=== PATIENT | male | born 1965 | race Caucasian/White ===

== ENCOUNTER 2017-09-06 08:48 | Day surgery (SDC) | payer BC, OTHER ==
[~2017-09-06 08:48] MED LIST: PROPOFOL 200 MG/20 ML VIAL As Ordered
[2017-09-06] MEDS: NS 1,000 ML IV (09:14)
== END 2017-09-06 11:02 | disposition home or self-care (01) ==
LOC: M SDC 08:48
DX: D12.2 Benign neoplasm of ascending colon (principal); Z86.010 Personal history of colon polyps
CPT/HCPCS: 45380

== ENCOUNTER → 2019-03-24 | Outpatient (REF) | payer OTHER | LOC: M LAB REF 17:10 | PROVIDERS: ATTEND Physician Assistant | DX: J02.9 Acute pharyngitis, unspecified (principal) ==

== ENCOUNTER → 2019-04-07 | Outpatient (CLI) | payer BC, OTHER ==
[~2019-04-07] MED LIST changes: +ISOVUE-370 76% 100ML VIAL (Q9967) As Ordered ONE; -PROPOFOL 200 MG/20 ML VIAL As Ordered
--- NOTE | 2019-04-07 17:37 | REP ---
Soft-tissue neck CT study with IV contrast: History: Localized swelling, mass and lump, and neck. No comparison neck imaging. CT contrast dose: 75 ml of intravenous Isovue [address] findings: There is a mucous retention cyst in the left sphenoid sinus measuring 14 mm in greatest diameter. The visualized paranasal sinuses are otherwise clear. No bony destructive lesion is appreciated. There are degenerative spondylosis changes at C5-6 and C6-7. There is a large mass involving the epiglottis and supraglottic larynx. This is predominately right-sided across the midline in the anterior pre-epiglottic space. The epiglottis is thickened. Aryepiglottic folds do not appear to be low involves and are normal. The arytenoid and cricoid cartilages are intact. No thyroid cartilage erosion or destruction is seen. Hyoid bone is unremarkable. The soft palate is unremarkable. There is some nodular irregularity in the floor the mouth posteriorly and to the left of midline suggesting involvement of the tongue base. Submandibular glands are normal and symmetric. Thyroid lobes are normal and symmetric. The lung apices are clear. The supraglottic mass lesion measures 3.2 by 2.5 cm in greatest transverse dimension. It is craniocaudal extent is difficult to define. Impression: Large, 3.2 cm, supraglottic and neoplastic mass involving the epiglottis and probably, the floor the mouth tongue base. Malignancy suspected. No adenopathy seen. Electronically Signed by Yobany Foley MD 04/07/2019 06:23 P
== END ==
LOC: M RAD 16:42
PROVIDERS: ATTEND Otolaryngology
DX: R22.1 Localized swelling, mass and lump, neck (principal); D38.0 Neoplasm of uncertain behavior of larynx
CPT/HCPCS: 70491; Q9967

== ENCOUNTER → 2019-04-20 | Outpatient (CLI) | payer BC, OTHER ==
[~2019-04-20] MED LIST changes: +ACET1TAB16 PO; +AERO1MIS2 XX; +BACI50OI TOP; +CIPR-249 PO; +COMPMIS43 XX; +IPRA0.00 NEB; -ISOVUE-370 76% 100ML VIAL (Q9967) As Ordered ONE; +OMEP-221 PO; +[UNRECOGNIZED DRUG - CODE] XX
--- NOTE | 2019-04-22 08:16 | ECGEPIP ---
Test Date: 2019-04-20 Pat Name: EMPERATRIZ DUMONT Department: Room: - Gender: Male Kitchenhand: YESENIA : 1965 Requested By: COLEMAN Bright Order Number: [id number] Reading MD: Joya Mcadams Measurements Intervals [place] Rate: 59 P: 25 CT: 146 QRS: 17 QRSD: 99 T: -4 QT: 378 QTc: 376 Interpretive Statements SINUS BRADYCARDIA POSSIBLE INFERIOR MYOCARDIAL INFARCTION, OF INDETERMINATE AGE NO PRIOR Electronically Signed on 04-22-2019 8:16:11 EDT by Joya Mcadams
== END ==
LOC: M EKG 15:54
PROVIDERS: ATTEND Anesthesiology
DX: Z01.818 Encounter for other preprocedural examination (principal); K21.9 Gastro-esophageal reflux disease without esophagitis; G47.30 Sleep apnea, unspecified; R00.1 Bradycardia, unspecified

== ENCOUNTER 2019-04-23 08:39 | Inpatient (IN) | payer BC, OTHER ==
[~2019-04-23] VITALS: Ht 182.9 cm; Wt 107.9 kg
[2019-04-23] VITALS (9 sets, daily range): BP systolic 119–131; BP diastolic 71–92; O2SAT 99
[~2019-04-23 08:39] MED LIST changes: -ACET1TAB16 PO; -AERO1MIS2 XX; -BACI50OI TOP; -CIPR-249 PO; -COMPMIS43 XX; -IPRA0.00 NEB; +LIDOCAINE 2% INJ 100 MG/5 ML SDV (FOR ANES.) As Ordered ONE; +MIDAZOLAM INJ 2 MG/2 ML VIAL (J2250) As Ordered ONE; +PROPOFOL 200 MG/20 ML VIAL As Ordered ONE; +ROCURONIUM BROMIDE 50 MG/5 ML VIAL As Ordered ONE; -[UNRECOGNIZED DRUG - CODE] XX; +fentaNYL 100 MCG/2 ML INJECTION (J3010) As Ordered ONE
[2019-04-23] MEDS ORDERED: CETACAINE SPRAY 5GM As Ordered ONE (09:53)
[2019-04-23] MEDS ORDERED: LIDOCAINE W/EPINEPHRINE 1% 20ML VIAL As Ordered ONE (10:37)
[2019-04-23] MEDS ORDERED: fentaNYL 100 MCG/2 ML INJECTION (J3010) As Ordered ONE (11:10)
[2019-04-23] MEDS ORDERED: EPINEPHrine 1MG/ML INJ 30ML MD-VIAL As Ordered ONE (11:14)
[2019-04-23] MEDS ORDERED: METHYLENE BLUE 0.5% (5MG/ML) 10 ML AMP (PROVAYBLUE)(Q9968 PER 1MG) As Ordered ONE (11:14)
[2019-04-23] MEDS ORDERED: MIDAZOLAM INJ 2 MG/2 ML VIAL (J2250) As Ordered ONE (12:18)
[2019-04-23] MEDS ORDERED: fentaNYL 250 MCG/5 ML INJECTION (J3010) As Ordered ONE (12:18)
[2019-04-23] MEDS ORDERED: PROPOFOL 1,000 MG/100 ML VIAL As Ordered ONE ×2 (12:21→14:36)
[2019-04-23] MEDS ORDERED: METOCLOPRAMIDE INJ 10MG/2ML VIAL (J2765) IV PRN (12:45)
[2019-04-23] MEDS ORDERED: ONDANSETRON 4MG/2ML VIAL (J2405) IV PRN (12:45)
[2019-04-23] MEDS ORDERED: LR 1,000 ML IV SCH (12:45)
[2019-04-23] MEDS ORDERED: MORPHINE 4 MG/ML 1ML VIAL/SYRINGE (J2270) IV PRN (13:00)
--- NOTE | 2019-04-23 13:20 | REP ---
Portable chest, 01:02 p.m., single AP view with the patient sitting: Comparison is 07/12/2008. There is a tracheostomy as an interval change. Lung ding are clear. Cardiac size is enlarged as an interval change. The billy, mediastinum, skeletal structures are unremarkable. Impression: Cardiomegaly. Tracheostomy. Lung ding are clear. Electronically Signed by Shad Mcdonald MD 04/23/2019 01:11 P
[2019-04-23] MEDS: fentaNYL 100 MCG/2 ML INJECTION (J3010) IV PRN ×5 (13:25→14:08)
[2019-04-23 13:39] LABS: BASO # 0.1 10^3/uL (0.0-0.2); BASO % 0.3 % (0.0-1.0); EOS # 0.1 10^3/uL (0.0-0.5); EOS % 0.5 % (0.0-3.0); HEMATOCRIT 44.7 % (42.0-52.0); HEMOGLOBIN 14.6 g/dl (13.5-17.5); LYMPH # 0.8 10^3/uL (1.5-5.0); LYMPH % 5.2 % (24.0-44.0); MEAN CORPUSCULAR HEMOGLOBIN 30.9 pg (27.0-33.0); MEAN CORPUSCULAR HGB CONC 32.7 g/dl (32.0-36.5); MEAN CORPUSCULAR VOLUME 94.5 fl (80.0-96.0); MONO # 1.1 10^3/uL (0.0-0.8); PLATELET COUNT, AUTOMATED 196 10^3/uL (150-450); RED BLOOD COUNT 4.73 10^6/uL (4.30-6.10); WHITE BLOOD COUNT 15.1 10^3/uL (4.0-10.0)
[2019-04-23] MEDS ORDERED: MIDAZOLAM INJ 2 MG/2 ML VIAL (J2250) IV PRN (13:45)
[2019-04-23 14:13] LABS: ALBUMIN 3.5 GM/DL (3.2-5.2); ALT/SGPT 45 U/L (12-78); BILIRUBIN,TOTAL 0.4 MG/DL (0.2-1.0); BLOOD UREA NITROGEN 12 MG/DL (7-18); CALCIUM LEVEL 8.7 MG/DL (8.5-10.1); CARBON DIOXIDE LEVEL 27 MEQ/L (21-32); CHLORIDE LEVEL 109 MEQ/L (98-107); CREATININE FOR GFR 1.04 MG/DL (0.70-1.30); GLOMERULAR FILTRATION RATE > 60.0 (>56); GLUCOSE, FASTING 99 MG/DL (70-100); POTASSIUM SERUM 4.5 MEQ/L (3.5-5.1); SODIUM LEVEL 141 MEQ/L (136-145); TOTAL PROTEIN 6.5 GM/DL (6.4-8.2)
--- NOTE | 2019-04-23 14:20 | HPEPDOC ---
General Date of Admission 04/23/19 Date of Service: Apr 23, 2019 Chief Complaint The patient is a 53-year-old male admitted with a reason for visit of Lesion Of Base Of Tongue. Source: RN/MD, Old records Exam Limitations: Other (sedated) Severity: Severe Associated Symptoms: Cough History of Present Illness 53 year old male with PMH of obesity, UZMA, hyperlipidemia, GERD came to the hospital today for a same day surgery for direct laryngoscopy and biopsy by Dr Abraham of a mass at the base of the tongue. During GA when the patient accounts clerk went in to intubate the patient there was large friable cauliflower like mass encroaching the base of the tongue, around the cords which started bleeding profusely and the oral cavity filled up with blood . Blood was suctioned and then the anesthesiologist tried to intubate but the tube could not be passed and again profuse bleeding occurred. An urgent tracheostomy was done by the surgeon Dr Abraham. He had about 200 cc blood loss. In the PACU as soon as he was waking up he started coughing severely and this caused profuse bleeding from one side of the tracheostomy. So the surgeon felt patient needed to be sedated and ventilated to give a little time for it to heal. Hospitalist was consulted for admission . Patient was admitted to ICU. Home Medications Scheduled Omeprazole (Omeprazole) 40 Mg Capsule., 40 MG PO DAILY, (Reported) Allergies Coded Allergies: No Known Allergies (Unverified , 09/03/17) Past Medical History Medical History UZMA, GERD, mass at the base of the tongue, hyperlipidemia, obesity Surgical History cholecystectomy, umbilical hernia repair Family History Patient sedated so family history could not be obtained. Social History * Smoker: former Smoker Alcohol: other (daily < 3 drinks/ day) Drugs: other (unknown) A-FIB/CHADSVASC A-FIB History Current/History of A-Fib/PAF?: No Review of Systems Other systems denies any pain at [facility] surgical site, coughing, hemoptysis through the new trach, no abdominal pain, nausea or vomiting. Physical Examination General Exam: Positive: No Acute Distress, Other (lightly sedated able to follow commands and answer some questions. ) Eye Exam: Positive: PERRLA, Conjunctiva & lids normal; Negative: Sclera icteric ENT Exam: Positive: Mucous membr. moist/pink, Tongue Midline, Other ENT (new tracheostomy) Neck Exam: Positive: Supple; Negative: JVD, thyromegaly Chest Exam: Positive: Clear to auscultation, Normal air movement Heart Exam: Positive: Rate Normal, Regular Rhythm, Normal S1, Normal S2; Negative: Murmurs, Rubs Telemetry: Positive: No significant arrhythmia Abdomen Exam: Positive: Normal bowel sounds, Soft; Negative: Tenderness, Hepatospenomegaly Extremity Exam: Positive: Normal pulses; Negative: Clubbing, Cyanosis, Edema Skin Exam: Positive: Nl turgor and temperature; Negative: Breakdown, Lesion Vital Signs Vital Signs Date Time Temp Pulse Resp B/P (MAP) Pulse Ox O2 Delivery O2 Flow Rate FiO2 04/23/19 09:03 96.7 68 17 134/82 (99) 98 Assessment/Plan 53 year old male with PMH of obesity, UZMA, hyperlipidemia, GERD came to the hospital today for a same day surgery for direct laryngoscopy and biopsy by Dr Abraham of a mass at the base of the tongue. During GA when the patient accounts clerk went in to intubate the patient there was large friable cauliflower like mass encroaching the base of the tongue, around the cords which started bleeding profusely and the oral cavity filled up with blood . Blood was suctioned and then the anesthesiologist tried to intubate but the tube could not be passed and again profuse bleeding occurred. An urgent tracheostomy was done by the surgeon Dr Abraham. He had about 200 cc blood loss. In the PACU as soon as he was waking up he started coughing severely and this caused profuse bleeding from one side of the tracheostomy. So the surgeon felt patient needed to be sedated and ventilated to give a little time for it to heal. Hospitalist was consulted for admission . Patient was admitted to ICU. S/P urgent Tracheostomy with bleeding in PACU. Bleeding from mass at trish base of the tongue during intubation requiring urgent tracheostomy. Tracheostomy management as per Dr Abraham continue propofol sedation Vent setting as per pulmonology. NPO, IVF. Malignant at the base of the tongue with obstruction s/p tracheostomy pain control with morphine prn Biopsy sent definitive management to be determined after biopsy results. UZMA now has tracheostomy GI prophylaxis with pantoprazole DVT prophylaxis mechanical. Plan / VTE VTE Prophylaxis Ordered?: Yes LEONORA TOMLINSON MD Apr 23, 2019 13:31
[2019-04-23] MEDS: LR 1,000 ML IV SCH (14:51)
[2019-04-23] MEDS: PROPOFOL 1,000 MG in IV 1 EA IV SCH ×4 (14:51→22:31)
--- NOTE | 2019-04-23 14:54 | CR ---
DATE OF CONSULTATION: 04/23/2019 I was asked by Dr. Sary Ortiz to evaluate Mr. Denise for mechanical ventilation recommendations. HISTORY OF PRESENT ILLNESS: Mr. Denise is a 53-year-old male who had a lesion at the base of the tongue. He was to have a biopsy of that lesion done today. Apparently, when the BACTERIOLOGIST FISHERY went to intubate him, there was a large region that was friable and they ended up suctioning 80-[address] Fernández then took the GlideScope and he could see the cords, but even before the tube was handed to him to place in, the lesion bled again. He therefore underwent an emergency tracheotomy. Biopsies were taken of what was verbally described to me as a large mass above the cords. He then went to the recovery room. He was coughing and also had heme. Dr. Abraham wanted him sedated with propofol to allow the trache time to heal. For his safety, we cannot have an individual on propofol that does not have a guaranteed backup ventilation. Mr. Denise was on propofol, but sedated to perhaps a [place] 2. He wakes up easily. He nods his head and indicates he is getting enough air and that his pain is controlled. He is actually trying to right notes in communication. While I was there in the PACU, he was placed on a ventilator on pressure support. He did have significant coughing associated with this maneuver, but once he became accustomed to it, he was resting comfortably on the ventilator. ALLERGIES: No known drug allergies. MEDICATIONS ON ADMISSION: - omeprazole 40 mg p.o. daily PAST MEDICAL HISTORY: 1. Gastroesophageal reflux disease (GERD). 2. Obstructive sleep apnea, using mouth device (question dental appliance) 3. Status post umbilical hernia repair with placement of mesh. 4. Status post cholecystectomy in 2014. 5. History of tobacco usage, quit 2013. SOCIAL HISTORY: Mr. Denise is . I do not know his pack-year history, but he quit in 2013. On his intake sheet it stated he had three alcoholic beverages per day. No illicit drug usage. FAMILY HISTORY: There is a family history of bone cancer in his mother. REVIEW OF SYSTEMS: What is known is contained in the HPI. Review of systems otherwise obtainable secondary to new tracheostomy and sedation. OBJECTIVE/PHYSICAL EXAMINATION Mr. Denise is lying in bed and appears comfortable. He is sedated, but rouses to voice and responds appropriately. When I initially saw him he was on trache dome and later this was converted to pressure support. VITAL SIGNS: Temperature 97.9, pulse 69, respiratory rate 14, blood pressure 122/76, MAP 91, SPO2 100% on FIO2 of 0.50. HEENT: Anicteric, PERRL. Nares: Patent bilaterally. Moist mucosa. Oropharynx clear. No obvious lesions. Good dentition. NECK: Not examined secondary to fresh trache. There is a fresh trache that has some blood in the orifices as well as around the tracheostomy site. CHEST: Normal shape. LUNGS: Symmetric excursion, good air entry, no wheeze, rhonchi or crackle on tidaled excursion. Normal I:E. No accessory muscle usage or retractions. CARDIOVASCULAR: Regular rate and rhythm with a normal S1-S2, no murmur, rub or gallop appreciated. ABDOMEN: Positive bowel sounds, soft, nondistended, he does not appear to indicate tenderness, no hepatosplenomegaly or masses appreciated. EXTREMITIES: Warm and well-perfused. Without clubbing, cyanosis or edema. Palpable pedal pulses bilaterally. LABORATORY DATA: There are no current labs. I reviewed his chest x-ray as well as report that was taken in the PACU. That x-ray showed normal to borderline enlarged cardiac silhouette. Normal-appearing mediastinal and hilar regions. No acute infiltrates. The tracheostomy is in good position. IMPRESSION: 1. Mechanical ventilation. Needed secondary to need to sedate new fresh trache in a patient with significant cough which requires propofol. This is for safety reasons that he requires a ventilator. 2. Status post emergent tracheostomy. 3. Base of tongue mass, biopsy pending. 4. UZMA as outpatient, tracheostomy eliminates that disease process. 5. GERD. 6. Alcohol, reported three beverages per day. 7. History of tobacco usage. RECOMMENDATIONS: 1. Will continue him on pressure support of 5/5 as long as he is requiring propofol for sedation. 2. Will use propofol to [place] level 2-3. 3. Anticipate that once he no longer requires sedation he will easily tolerate dome as he was doing that in the PACU today. 4. Given three to four alcoholic beverages, today would place him on CIWA protocol, will defer that to the hospitalist service. 5. As noted above, his UZMA is no longer a problem given tracheostomy which could overcome the obstruction.
[2019-04-23] MEDS: CHLORHEXIDINE GLUCONATE 0.12 % 15ML UDC (PERIDEX ORAL RINSE) MT SCH (20:48)
[2019-04-23] MEDS: MORPHINE 4 MG/ML 1ML VIAL/SYRINGE (J2270) IV PRN (20:49)
[2019-04-23] MEDS ORDERED: CHLORHEXIDINE GLUCONATE 0.12 % 15ML UDC (PERIDEX ORAL RINSE) MT SCH (21:00)
--- NOTE | 2019-04-23 21:42 | RO ---
DATE OF PROCEDURE: 04/23/2019 PREPROCEDURE DIAGNOSIS: Supraglottic tumor. POSTPROCEDURE DIAGNOSIS: Base of the tongue cancer. PROCEDURE: Tracheotomy under local anesthesia and direct laryngoscopy and biopsy. SURGEON: Gentry Abraham MD [employer] SPECIALIST: Dr. Claudio ANESTHESIA: DESCRIPTION OF PROCEDURE: Under general anesthesia, there was an attempt made at intubation, which was unsuccessful. The patient developed some bleeding from the tumor. Following that, then the patient was woken up and then under local anesthesia, I did a tracheotomy. I infiltrated the area with lidocaine and epinephrine. I divided skin and subcutaneous tissues. I divided the strap muscles in the midline. I went down to the trachea. I identified the hyoid. There was thyroid over the trachea. I mobilized the isthmus and divided with clamps and ties. Once this was done, then I inserted a hook into the cricoid and elevated the larynx. I made an incision between the second-third ring. I then opened up the airway. I inserted a #8 Shiley tube. There was some bleeding along the way, which was controlled with cautery or ties of #3-0 silk. The patient tolerated the procedure well. Less than 10 mL estimated blood loss. Once this was done, then the trach tube was sutured into place. I then put on some ties, and then we turned the bed. I used Aquaplast to protect the teeth. I inserted the laryngoscope, examined the oropharynx, hypopharynx. I was unable to get a good look at the cords because there was a large tumor at the base of the tongue down to the epiglottis. I could not get underneath the epiglottis to elevate out of the way. The tumor extended to the left of midline from the right side. The tumor was fungating and bled easily. Several biopsies were performed. Tumor was probably 3-4 cm in diameter. The piriform fossa on both sides was clear. Postcricoid area was clear. IMPRESSION: Patient has base of tongue carcinoma right side, and because of airway issue, a tracheostomy was performed. Patient tolerated the procedure well and was transferred to the recovery room in excellent condition. Patient will be admitted to the intensive care unit (ICU) afterwards. Dr. Claudio held retractors and suctioned during the procedure of the tracheotomy.
[2019-04-24] VITALS (16 sets, daily range): BP systolic 91–147; BP diastolic 55–84; O2SAT 96–99
[2019-04-24] MEDS: LR 1,000 ML IV SCH (01:40)
[2019-04-24] MEDS: PROPOFOL 1,000 MG in IV 1 EA IV SCH ×5 (01:41→08:34)
[2019-04-24] MEDS: MORPHINE 4 MG/ML 1ML VIAL/SYRINGE (J2270) IV PRN (02:27)
[2019-04-24 05:02] LABS: BASO % 0.3 % (0.0-1.0); EOS # 0.1 10^3/uL (0.0-0.5); EOS % 0.5 % (0.0-3.0); HEMATOCRIT 41.3 % (42.0-52.0); HEMOGLOBIN 13.6 g/dl (13.5-17.5); LYMPH # 1.4 10^3/uL (1.5-5.0); MEAN CORPUSCULAR HEMOGLOBIN 30.8 pg (27.0-33.0); MEAN CORPUSCULAR HGB CONC 32.9 g/dl (32.0-36.5); MEAN CORPUSCULAR VOLUME 93.7 fl (80.0-96.0); MONO # 1.7 10^3/uL (0.0-0.8); MONO % 11.1 % (0.0-5.0); NEUTROPHILS # 11.9 10^3/uL (1.5-8.5); NEUTROPHILS % 78.5 % (36.0-66.0); PLATELET COUNT, AUTOMATED 182 10^3/uL (150-450); RED BLOOD COUNT 4.41 10^6/uL (4.30-6.10); WHITE BLOOD COUNT 15.1 10^3/uL (4.0-10.0)
[2019-04-24 05:32] LABS: BLOOD UREA NITROGEN 11 MG/DL (7-18); CALCIUM LEVEL 8.2 MG/DL (8.5-10.1); CARBON DIOXIDE LEVEL 30 MEQ/L (21-32); CHLORIDE LEVEL 107 MEQ/L (98-107); CREATININE FOR GFR 0.98 MG/DL (0.70-1.30); GLOMERULAR FILTRATION RATE > 60.0 (>56); GLUCOSE, FASTING 104 MG/DL (70-100); POTASSIUM SERUM 3.9 MEQ/L (3.5-5.1); SODIUM LEVEL 143 MEQ/L (136-145)
[2019-04-24] MEDS: CHLORHEXIDINE GLUCONATE 0.12 % 15ML UDC (PERIDEX ORAL RINSE) MT SCH ×2 (09:24→21:00)
[2019-04-24] MEDS: PANTOPRAZOLE 40MG INJ (PROTONIX) (C9113) IV SCH (09:24)
--- NOTE | 2019-04-24 09:38 | IPN ---
DATE: 04/24/2019 I attended Kole Denise here in the intensive care unit (ICU). The patient was examined and the chart was reviewed. Sedation was lightened. He is on a PEEP and pressure support only. He is quite comfortable. He has just been informed by Dr. Abraham the results of his pathology. His pain he describes as a 2 to 3 out of 10, but currently is tolerable. No new blood gas this morning. No new films. White blood cell count 15.1. Electrolytes fairly unremarkable and are reviewed and in the EMR. PHYSICAL EXAMINATION: Membranes are moist. Trachea is midline. His trach site has only mild dried blood but is otherwise benign in appearance. Pupils react. Sclerae clear. Chest clear to auscultation and percussion. No focal adventitious sounds identified. Cardiac is regular. No murmur, rub or gallop. Peripheral pulses palpable. No edema. Abdomen is obese, soft and nontender with active bowel sounds. No convincing organomegaly or mass. Extremities are without cyanosis or clubbing. Neurologically, he is awake, alert and appropriate. Psychiatric shows normal mood and affect. Maximum temperature (t-max) overnight 100.1, blood pressure 91 to 115 systolic. Heart rate 80 to 100s with a sinus mechanism. Pulse oximetry between 95 and 99% on 40% FiO2. IMPRESSION: 1. Status post tracheostomy for upper airway obstruction. 2. Subsegmental atelectasis, improved. 3. History of obstructive sleep apnea, now status post tracheostomy. RECOMMENDATIONS: At this point, we will put him on an aerosol trach collar. My suspicion is that the patient will be able to have his balloon down and work on speaking later in the day. Nutrition and oral intake will be per ENT. At this point, we will proceed as outlined above. Further recommendations will be made in the progress record as new information becomes available.
[2019-04-24 10:10] LABS: ABG BASE EXCESS 2.9 (-2.0-2.0); ABG HCO3 24.4 MEQ/L (22.0-26.0); ABG O2 SATURATION 99.3 % (95.0-99.0); ABG PARTIAL PRESSURE CO2 28.8 mmHg (35.0-45.0); ABG PARTIAL PRESSURE O2 144.5 mmHg (75.0-100.0); ABG STANDARD HCO3 27.1 MEQ/L (22.0-26.0); ABG TOTAL CO2 25.2 MEQ/L (22.0-29.0); ABG pH (ARTERIAL) 7.545 UNITS (7.350-7.450)
[2019-04-24] MEDS: IPRATROPIUM 0.5MG/ALBUTEROL 2.5MG INH SOL UD 3ML (DUONEB)(J7620) NEB SCH ×3 (11:29→20:04)
[2019-04-24] MEDS ORDERED: LORazepam 2 MG/ML VIAL (J2060) IV PRN (11:45)
--- NOTE | 2019-04-24 14:32 | IPNPDOC ---
Subjective Date Seen The patient was seen on 04/24/19. Subjective Chief Complaint/HPI Patient up and awake this morning weaned off the profofol and off vent. He is on a trach collar. Diet advanced to clear liquids. Anxious about the new diagnosis of cancer and new tracheotomy in ability to talk. Objective Physical Examination General Exam: Positive: Alert, Cooperative, No Acute Distress Eye Exam: Positive: PERRLA, Conjunctiva & lids normal; Negative: Sclera icteric ENT Exam: Positive: Mucous membr. moist/pink, Tongue Midline, Other ENT (new tracheostomy) Neck Exam: Positive: Supple; Negative: JVD, thyromegaly Chest Exam: Positive: Clear to auscultation, Normal air movement Heart Exam: Positive: Rate Normal, Regular Rhythm, Normal S1, Normal S2; Negative: Murmurs, Rubs Telemetry: Positive: No significant arrhythmia Abdomen Exam: Positive: Normal bowel sounds, Soft; Negative: Tenderness, Hepatospenomegaly Male Exam: Positive: Normal Genital Exam Extremity Exam: Positive: Normal pulses; Negative: Clubbing, Cyanosis, Edema Skin Exam: Positive: Nl turgor and temperature; Negative: Breakdown, Lesion Neuro Exam: Positive: Normal Gait, Normal Speech, Cranial Nerves 3-12 NL, Reflexes 2+ Psych Exam: Positive: Mental status NL, Mood NL, Oriented x 3 Assessment /Plan Assessment 53 year old male with PMH of obesity, UZMA, hyperlipidemia, GERD came to the hospital today for a same day surgery for direct laryngoscopy and biopsy by Dr Abraham of a mass at the base of the tongue. During GA when the health unit coordinator went in to intubate the patient there was large friable cauliflower like mass encroaching the base of the tongue, around the cords which started bleeding profusely and the oral cavity filled up with blood . Blood was suctioned and then the anesthesiologist tried to intubate but the tube could not be passed and again profuse bleeding occurred. An urgent tracheostomy was done by the surgeon Dr Abraham. He had about 200 cc blood loss. In the PACU as soon as he was waking up he started coughing severely and this caused profuse bleeding from one side of the tracheostomy. So the surgeon felt patient needed to be sedated and ventilated to give a little time for it to heal. Hospitalist was consulted for admission . Patient was admitted to ICU. S/P urgent Tracheostomy due to bleeding from mass at the base of the tongue during intubation. mass at the base of the tongue encroaching around the vocal cords with bleeding in PACU. tracheostomy management as per Dr Abraham diet advanced to clear liquids. Then advance as tolerated. 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 pain control with morphine prn UZMA now has tracheostomy GI prophylaxis with pantoprazole Significant daily alcohol use will put on CIWA protocol and ativan prn. DVT prophylaxis mechanical. Plan/VTE VTE Prophylaxis Ordered?: Yes VS, I&O, 24H, [facility] Vital Signs/I&O Vital Signs Date Time Temp Pulse Resp B/P (MAP) Pulse Ox O2 Delivery O2 Flow Rate FiO2 04/24/19 12:00 98.0 96 22 126/72 (90) 96 35 04/24/19 06:01 Ventilator I&O- Last 24 Hours up to 6 AM 04/24/19 06:00 Intake Total 2531 ml Output Total 2575 ml Balance -44 ml Laboratory Data 24H LABS Laboratory Tests 2 04/24/19 04:44: Immature Granulocyte % (Auto) 0.6, White Blood Count 15.1H, Red Blood Count 4.41, Hemoglobin 13.6, Hematocrit 41.3L, Mean Corpuscular Volume 93.7, Mean Corpuscular Hemoglobin 30.8, Mean Corpuscular Hemoglobin Concent 32.9, Red Cell Distribution Width 13.7, Platelet Count 182, Neutrophils (%) (Auto) 78.5H, Lymphocytes (%) (Auto) 9.0L, Monocytes (%) (Auto) 11.1H, Eosinophils (%) (Auto) 0.5, Basophils (%) (Auto) 0.3, Neutrophils # (Auto) 11.9H, Lymphocytes # (Auto) 1.4L, Monocytes # (Auto) 1.7H, Eosinophils # (Auto) 0.1, Basophils # (Auto) 0.0, Nucleated Red Blood Cells % (auto) 0.0, Anion Gap 6L, Glomerular Filtration Rate > 60.0, Blood Urea Nitrogen 11, Creatinine 0.98, Sodium Level 143, Potassium Level 3.9, Chloride Level 107, Carbon Dioxide Level 30, Calcium Level 8.2L 04/24/19 09:57: Blood Gas Bicarbonate Standard 27.1H, Arterial Blood pH 7.545H, Arterial Blood Partial Pressure CO2 28.8L, Arterial Blood Partial Pressure O2 144.5H, Arterial Blood Total CO2 25.2, Arterial Blood HCO3 24.4, Arterial Blood Base Excess 2.9H, Arterial Blood Oxygen Saturation 99.3H CBC/BMP Laboratory Tests 04/24/19 04:44 Red Blood Count 4.41, Mean Corpuscular Volume 93.7, Mean Corpuscular Hemoglobin 30.8, Mean Corpuscular Hemoglobin Concent 32.9, Red Cell Distribution Width 13.7, Neutrophils (%) (Auto) 78.5 H, Lymphocytes (%) (Auto) 9.0 L, Monocytes (%) (Auto) 11.1 H, Eosinophils (%) (Auto) 0.5, Basophils (%) (Auto) 0.3, Neutrophils # (Auto) 11.9 H, Lymphocytes # (Auto) 1.4 L, Monocytes # (Auto) 1.7 H, Eosinophils # (Auto) 0.1, Basophils # (Auto) 0.0, Calcium Level 8.2 L LEONORA TOMLINSON MD Apr 24, 2019 14:31
[2019-04-25] VITALS: BP 119/68
[2019-04-25 03:26] VITALS: O2SAT 100
[2019-04-25] MEDS: IPRATROPIUM 0.5MG/ALBUTEROL 2.5MG INH SOL UD 3ML (DUONEB)(J7620) NEB SCH ×7 (03:26→22:51)
[2019-04-25 04:00] VITALS: BP 133/75
[2019-04-25] MEDS: MORPHINE 4 MG/ML 1ML VIAL/SYRINGE (J2270) IV PRN (04:36)
[2019-04-25 05:09] LABS: BASO # 0.1 10^3/uL (0.0-0.2); BASO % 0.3 % (0.0-1.0); EOS % 0.2 % (0.0-3.0); HEMATOCRIT 41.7 % (42.0-52.0); HEMOGLOBIN 13.5 g/dl (13.5-17.5); LYMPH # 1.1 10^3/uL (1.5-5.0); LYMPH % 6.2 % (24.0-44.0); MEAN CORPUSCULAR HEMOGLOBIN 30.1 pg (27.0-33.0); MEAN CORPUSCULAR HGB CONC 32.4 g/dl (32.0-36.5); MEAN CORPUSCULAR VOLUME 93.1 fl (80.0-96.0); MONO # 1.9 10^3/uL (0.0-0.8); MONO % 10.6 % (0.0-5.0); NEUTROPHILS # 14.5 10^3/uL (1.5-8.5); NEUTROPHILS % 82.1 % (36.0-66.0); PLATELET COUNT, AUTOMATED 184 10^3/uL (150-450); RED BLOOD COUNT 4.48 10^6/uL (4.30-6.10); WHITE BLOOD COUNT 17.6 10^3/uL (4.0-10.0)
[2019-04-25 05:30] LABS: BLOOD UREA NITROGEN 11 MG/DL (7-18); CALCIUM LEVEL 8.2 MG/DL (8.5-10.1); CARBON DIOXIDE LEVEL 28 MEQ/L (21-32); CHLORIDE LEVEL 108 MEQ/L (98-107); CREATININE FOR GFR 0.93 MG/DL (0.70-1.30); GLOMERULAR FILTRATION RATE > 60.0 (>56); GLUCOSE, FASTING 128 MG/DL (70-100); POTASSIUM SERUM 3.6 MEQ/L (3.5-5.1); SODIUM LEVEL 142 MEQ/L (136-145)
[2019-04-25 08:00] VITALS: BP 135/76
[2019-04-25] MEDS ORDERED: KETOROLAC 30 MG/ML VIAL (J1885) IV ONE ×2 (08:30→23:00)
[2019-04-25] MEDS ORDERED: SODIUM CHLORIDE 0.9% 1000ML IV ONE (08:45)
[2019-04-25] MEDS: PANTOPRAZOLE 40MG INJ (PROTONIX) (C9113) IV SCH (09:12)
[2019-04-25] MEDS: CHLORHEXIDINE GLUCONATE 0.12 % 15ML UDC (PERIDEX ORAL RINSE) MT SCH ×2 (09:12→23:37)
[2019-04-25 15:25] VITALS: BP 121/84
[2019-04-25 20:00] VITALS: BP 122/84
[2019-04-25] MEDS: PIPERACILLIN/TAZOBACTAM SOD 3.375 GM in D5W MINI-BAG PLUS 50 ML IV SCH (23:13)
[2019-04-26] MEDS: IPRATROPIUM 0.5MG/ALBUTEROL 2.5MG INH SOL UD 3ML (DUONEB)(J7620) NEB SCH ×6 (03:44→23:29)
[2019-04-26] MEDS: PIPERACILLIN/TAZOBACTAM SOD 3.375 GM in D5W MINI-BAG PLUS 50 ML IV SCH ×4 (04:21→22:45)
[2019-04-26 06:00] VITALS: BP 125/81
[2019-04-26 06:23] LABS: BASO % 0.3 % (0.0-1.0); EOS # 0.1 10^3/uL (0.0-0.5); HEMATOCRIT 42.1 % (42.0-52.0); HEMOGLOBIN 13.5 g/dl (13.5-17.5); LYMPH % 6.7 % (24.0-44.0); MEAN CORPUSCULAR HEMOGLOBIN 30.4 pg (27.0-33.0); MEAN CORPUSCULAR HGB CONC 32.1 g/dl (32.0-36.5); MEAN CORPUSCULAR VOLUME 94.8 fl (80.0-96.0); MONO # 1.6 10^3/uL (0.0-0.8); MONO % 11.5 % (0.0-5.0); NEUTROPHILS # 11.3 10^3/uL (1.5-8.5); NEUTROPHILS % 79.8 % (36.0-66.0); PLATELET COUNT, AUTOMATED 185 10^3/uL (150-450); RED BLOOD COUNT 4.44 10^6/uL (4.30-6.10); WHITE BLOOD COUNT 14.1 10^3/uL (4.0-10.0)
[2019-04-26 06:53] LABS: BLOOD UREA NITROGEN 19 MG/DL (7-18); CALCIUM LEVEL 8.9 MG/DL (8.5-10.1); CARBON DIOXIDE LEVEL 29 MEQ/L (21-32); CHLORIDE LEVEL 108 MEQ/L (98-107); CREATININE FOR GFR 0.99 MG/DL (0.70-1.30); GLOMERULAR FILTRATION RATE > 60.0 (>56); GLUCOSE, FASTING 116 MG/DL (70-100); POTASSIUM SERUM 3.6 MEQ/L (3.5-5.1); SODIUM LEVEL 141 MEQ/L (136-145)
[2019-04-26] MEDS ORDERED: KETOROLAC 30 MG/ML VIAL (J1885) IV PRN (07:45)
[2019-04-26] MEDS: NS 1,000 ML IV SCH ×2 (08:03→21:52)
[2019-04-26 08:30] VITALS: O2SAT 100
[2019-04-26] MEDS: CHLORHEXIDINE GLUCONATE 0.12 % 15ML UDC (PERIDEX ORAL RINSE) MT SCH ×2 (09:00→21:52)
[2019-04-26] MEDS: PANTOPRAZOLE 40MG INJ (PROTONIX) (C9113) IV SCH (10:12)
[2019-04-26 14:00] VITALS: BP 128/84
[2019-04-26 22:00] VITALS: BP 141/81
--- NOTE | 2019-04-26 22:08 | IPNPDOC ---
Subjective Date Seen The patient was seen on 04/25/19. Subjective Chief Complaint/HPI low grade fever on post op day 1 , no fevers today. countinues to have bouts of coughing, no hemoptysis. remains on trach coller. Objective Physical Examination General Exam: Positive: Alert, Cooperative, No Acute Distress Eye Exam: Positive: PERRLA, Conjunctiva & lids normal; Negative: Sclera icteric ENT Exam: Positive: Mucous membr. moist/pink, Tongue Midline, Other ENT (new tracheostomy) Neck Exam: Positive: Supple; Negative: JVD, thyromegaly Chest Exam: Positive: Clear to auscultation, Normal air movement Heart Exam: Positive: Rate Normal, Regular Rhythm, Normal S1, Normal S2; Negative: Murmurs, Rubs Telemetry: Positive: No significant arrhythmia Abdomen Exam: Positive: Normal bowel sounds, Soft; Negative: Tenderness, Hepatospenomegaly Male Exam: Positive: Normal Genital Exam Extremity Exam: Positive: Normal pulses; Negative: Clubbing, Cyanosis, Edema Skin Exam: Positive: Nl turgor and temperature; Negative: Breakdown, Lesion Neuro Exam: Positive: Normal Gait, Normal Speech, Cranial Nerves 3-12 NL, Reflexes 2+ Psych Exam: Positive: Mental status NL, Mood NL, Oriented x 3 Assessment /Plan Assessment 53 year old male with PMH of obesity, UZMA, hyperlipidemia, GERD came to the hospital today for a same day surgery for direct laryngoscopy and biopsy by Dr Abraham of a mass at the base of the tongue. During GA when the certified coatings inspector went in to intubate the patient there was large friable cauliflower like mass encroaching the base of the tongue, around the cords which started bleeding profusely and the oral cavity filled up with blood . Blood was suctioned and the n the anesthesiologist tried to intubate but the tube could not be passed and again profuse bleeding occurred. An urgent tracheostomy was done by the surgeon Dr Abraham. He had about 200 cc blood loss. In the PACU as soon as he was waking up he started coughing severely and this caused profuse bleeding from one side of the tracheostomy. So the surgeon felt patient needed to be sedated and ventilated to give a little time for it to heal. Hospitalist was consulted for admission . Patient was admitted to ICU. S/P urgent Tracheostomy due to bleeding during intubation from obstructive mass at the base of the tongue encroaching around the vocal cords. Had significant bleeding with coughing in PACU so was decided to sedate him with propofol with back up ventillation and admit him to ICU.. bleeding has now resolved, Patient on trach coller. tacheostomy management as per Dr Abraham Then advance diet as tolerated. large amounts of foul smelling phlegm from the tracheotomy started on zosyn. 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 pain control with morphine prn UZMA now has tracheostomy GI prophylaxis with pantoprazole Significant daily alcohol use will put on CIWA protocol and ativan prn. DVT prophylaxis mechanical. Plan/VTE VTE Prophylaxis Ordered?: Yes VS, I&O, 24H, Luisbonharjinder Vital Signs/I&O Vital Signs Date Time Temp Pulse Resp B/P (MAP) Pulse Ox O2 Delivery O2 Flow Rate FiO2 04/25/19 04:46 18 04/25/19 04:00 98.0 99 133/75 (94) 97 28 04/25/19 03:26 Trach Collar 5.0 I&O- Last 24 Hours up to 6 AM 04/25/19 06:00 Intake Total 210 ml Output Total 980 ml Balance -770 ml Laboratory Data 24H LABS Laboratory Tests 2 04/24/19 09:57: Blood Gas Bicarbonate Standard 27.1H, Arterial Blood pH 7.545H, Arterial Blood Partial Pressure CO2 28.8L, Arterial Blood Partial Pressure O2 144.5H, Arterial Blood Total CO2 25.2, Arterial Blood HCO3 24.4, Arterial Blood Base Excess 2.9H, Arterial Blood Oxygen Saturation 99.3H 04/25/19 04:57: Immature Granulocyte % (Auto) 0.6, White Blood Count 17.6H, Red Blood Count 4.48, Hemoglobin 13.5, Hematocrit 41.7L, Mean Corpuscular Volume 93.1, Mean Corpuscular Hemoglobin 30.1, Mean Corpuscular Hemoglobin Concent 32.4, Red Cell Distribution Width 13.9, Platelet Count 184, Neutrophils (%) (Auto) 82.1H, Lymphocytes (%) (Auto) 6.2L, Monocytes (%) (Auto) 10.6H, Eosinophils (%) (Auto) 0.2, Basophils (%) (Auto) 0.3, Neutrophils # (Auto) 14.5H, Lymphocytes # (Auto) 1.1L, Monocytes # (Auto) 1.9H, Eosinophils # (Auto) 0.0, Basophils # (Auto) 0.1, Nucleated Red Blood Cells % (auto) 0.0, Anion Gap 6L, Glomerular Filtration Rate > 60.0, Blood Urea Nitrogen 11, Creatinine 0.93, Sodium Level 142, Potassium Level 3.6, Chloride Level 108H, Carbon Dioxide Level 28, Calcium Level 8.2L CBC/BMP Laboratory Tests 04/25/19 04:57 Red Blood Count 4.48, Mean Corpuscular Volume 93.1, Mean Corpuscular Hemoglobin 30.1, Mean Corpuscular Hemoglobin Concent 32.4, Red Cell Distribution Width 13.9, Neutrophils (%) (Auto) 82.1 H, Lymphocytes (%) (Auto) 6.2 L, Monocytes (%) (Auto) 10.6 H, Eosinophils (%) (Auto) 0.2, Basophils (%) (Auto) 0.3, Neutrophils # (Auto) 14.5 H, Lymphocytes # (Auto) 1.1 L, Monocytes # (Auto) 1.9 H, Eosinophils # (Auto) 0.0, Basophils # (Auto) 0.1, Calcium Level 8.2 L Microbiology Microbiology 04/25/19 Gram Stain - Final, Resulted 04/25/19 Sputum Culture, Resulted Pending LEONORA TOMLINSON MD Apr 25, 2019 06:29
--- NOTE | 2019-04-26 22:46 | IPNPDOC ---
Subjective Date Seen The patient was seen on 04/26/19. Subjective Chief Complaint/HPI feeling much better, did his own tracheostomy care. decreased phlegm and cough this morning. No fever or chills, pain controlled. Objective Physical Examination General Exam: Positive: Alert, Cooperative, No Acute Distress Eye Exam: Positive: PERRLA, Conjunctiva & lids normal; Negative: Sclera icteric ENT Exam: Positive: Mucous membr. moist/pink, Tongue Midline, Other ENT (new tracheostomy) Neck Exam: Positive: Supple; Negative: JVD, thyromegaly Chest Exam: Positive: Clear to auscultation, Normal air movement Heart Exam: Positive: Rate Normal, Regular Rhythm, Normal S1, Normal S2; Negative: Murmurs, Rubs Telemetry: Positive: No significant arrhythmia Abdomen Exam: Positive: Normal bowel sounds, Soft; Negative: Tenderness, Hepatospenomegaly Male Exam: Positive: Normal Genital Exam Extremity Exam: Positive: Normal pulses; Negative: Clubbing, Cyanosis, Edema Skin Exam: Positive: Nl turgor and temperature; Negative: Breakdown, Lesion Neuro Exam: Positive: Normal Gait, Normal Speech, Cranial Nerves 3-12 NL, Reflexes 2+ Psych Exam: Positive: Mental status NL, Mood NL, Oriented x 3 Assessment /Plan Assessment 53 year old male with PMH of obesity, UZMA, hyperlipidemia, GERD came to the hospital today for a same day surgery for direct laryngoscopy and biopsy by Dr Abraham of a mass at the base of the tongue. During GA when the entertainment agent went in to intubate the patient there was large friable cauliflower like mass encroaching the base of the tongue, around the cords which started bleeding profusely and the oral cavity filled up with blood . Blood was suctioned and then the anesthesiologist tried to intubate but the tube could not be passed and again profuse bleeding occurred. An urgent tracheostomy was done by the surgeon Dr Abraham. He had about 200 cc blood loss. In the PACU as soon as he was waking up he started coughing severely and this caused profuse bleeding from one side of the tracheostomy. So the surgeon felt patient needed to be sedated and ventilated to give a little time for it to heal. Hospitalist was consulted for admission . Patient was admitted to ICU. S/P urgent Tracheostomy due to bleeding from mass at trish base of the tongue obstructive mass at the base of the tongue encroaching around the vocal cords. Had significant bleeding with coughing in PACU so was decided to sedate him with propofol with back up ventilation and admit him to ICU.. bleeding has now resolved, Patient on trach collar. tacheostomy management as per Dr Abraham Then advance diet as tolerated. large amounts of foul smelling phlegm from the tracheotomy started on zosyn. poor oral fluid intake so started on IVF. 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 pain control with toradol prn UZMA now has tracheostomy GI prophylaxis with pantoprazole Significant daily alcohol use will put on CIWA protocol and ativan prn. DVT prophylaxis mechanical. Plan/VTE VTE Prophylaxis Ordered?: Yes VS, I&O, 24H, Fishbone Vital Signs/I&O Vital Signs Date Time Temp Pulse Resp B/P (MAP) Pulse Ox O2 Delivery O2 Flow Rate FiO2 04/26/19 14:00 99.3 98 20 128/84 (99) 94 28 04/26/19 08:30 Trach Collar 5.0 I&O- Last 24 Hours up to 6 AM 04/26/19 06:00 Intake Total 580 ml Output Total 400 ml Balance 180 ml Laboratory Data 24H LABS Laboratory Tests 2 04/26/19 05:56: Immature Granulocyte % (Auto) 0.7, White Blood Count 14.1H, Red Blood Count 4.44, Hemoglobin 13.5, Hematocrit 42.1, Mean Corpuscular Volume 94.8, Mean Corpuscular Hemoglobin 30.4, Mean Corpuscular Hemoglobin Concent 32.1, Red Cell Distribution Width 13.7, Platelet Count 185, Neutrophils (%) (Auto) 79.8H, Lymphocytes (%) (Auto) 6.7L, Monocytes (%) (Auto) 11.5H, Eosinophils (%) (Auto) 1.0, Basophils (%) (Auto) 0.3, Neutrophils # (Auto) 11.3H, Lymphocytes # (Auto) 1.0L, Monocytes # (Auto) 1.6H, Eosinophils # (Auto) 0.1, Basophils # (Auto) 0.0, Nucleated Red Blood Cells % (auto) 0.0, Anion Gap 4L, Glomerular Filtration Rate > 60.0, Blood Urea Nitrogen 19#H, Creatinine 0.99, Sodium Level 141, Potassium Level 3.6, Chloride Level 108H, Carbon Dioxide Level 29, Calcium Level 8.9 CBC/BMP Laboratory Tests 04/26/19 05:56 Red Blood Count 4.44, Mean Corpuscular Volume 94.8, Mean Corpuscular Hemoglobin 30.4, Mean Corpuscular Hemoglobin Concent 32.1, Red Cell Distribution Width 13.7, Neutrophils (%) (Auto) 79.8 H, Lymphocytes (%) (Auto) 6.7 L, Monocytes (%) (Auto) 11.5 H, Eosinophils (%) (Auto) 1.0, Basophils (%) (Auto) 0.3, Neutrophils # (Auto) 11.3 H, Lymphocytes # (Auto) 1.0 L, Monocytes # (Auto) 1.6 H, Eosinophils # (Auto) 0.1, Basophils # (Auto) 0.0, Calcium Level 8.9 Microbiology Microbiology 04/25/19 Gram Stain - Final, Resulted 04/25/19 Sputum Culture, Resulted Pending LEONORA TOMLINSON MD Apr 26, 2019 22:45
[2019-04-27] MEDS: IPRATROPIUM 0.5MG/ALBUTEROL 2.5MG INH SOL UD 3ML (DUONEB)(J7620) NEB SCH ×6 (02:43→23:35)
[2019-04-27] MEDS: PIPERACILLIN/TAZOBACTAM SOD 3.375 GM in D5W MINI-BAG PLUS 50 ML IV SCH ×4 (05:11→22:44)
[2019-04-27 06:00] VITALS: BP 140/86
[2019-04-27 06:36] LABS: BASO # 0.1 10^3/uL (0.0-0.2); BASO % 0.4 % (0.0-1.0); EOS # 0.2 10^3/uL (0.0-0.5); EOS % 1.2 % (0.0-3.0); HEMATOCRIT 38.5 % (42.0-52.0); HEMOGLOBIN 12.5 g/dl (13.5-17.5); LYMPH # 0.9 10^3/uL (1.5-5.0); LYMPH % 6.6 % (24.0-44.0); MEAN CORPUSCULAR HEMOGLOBIN 30.5 pg (27.0-33.0); MEAN CORPUSCULAR HGB CONC 32.5 g/dl (32.0-36.5); MEAN CORPUSCULAR VOLUME 93.9 fl (80.0-96.0); MONO # 1.5 10^3/uL (0.0-0.8); NEUTROPHILS # 10.6 10^3/uL (1.5-8.5); PLATELET COUNT, AUTOMATED 197 10^3/uL (150-450); WHITE BLOOD COUNT 13.3 10^3/uL (4.0-10.0)
[2019-04-27 06:59] LABS: BLOOD UREA NITROGEN 15 MG/DL (7-18); CALCIUM LEVEL 8.5 MG/DL (8.5-10.1); CARBON DIOXIDE LEVEL 27 MEQ/L (21-32); CHLORIDE LEVEL 110 MEQ/L (98-107); CREATININE FOR GFR 0.91 MG/DL (0.70-1.30); GLOMERULAR FILTRATION RATE > 60.0 (>56); GLUCOSE, FASTING 107 MG/DL (70-100); POTASSIUM SERUM 3.3 MEQ/L (3.5-5.1); SODIUM LEVEL 142 MEQ/L (136-145)
[2019-04-27 07:41] VITALS: O2SAT 100
[2019-04-27] MEDS: CHLORHEXIDINE GLUCONATE 0.12 % 15ML UDC (PERIDEX ORAL RINSE) MT SCH ×2 (08:05→21:41)
[2019-04-27] MEDS: PANTOPRAZOLE 40MG INJ (PROTONIX) (C9113) IV SCH (08:05)
[2019-04-27] MEDS ORDERED: VARIBAR NECTAR 40% w/v 240ML SUSP BTL As Ordered ONE (10:51)
[2019-04-27] MEDS ORDERED: VARIBAR PUDDING 40% w/v 230ML TUBE As Ordered ONE (10:51)
[2019-04-27] MEDS ORDERED: BARIUM SULFATE 700 MG TABLET (E-Z-DISK) As Ordered ONE (10:52)
[2019-04-27] MEDS ORDERED: E-Z-PAQUE 96% w/w SUSP 176GM BTL As Ordered ONE (10:52)
[2019-04-27] MEDS: OMEPRAZOLE 20 MG CAP PO SCH (11:30)
[2019-04-27] MEDS: ACETAMINOPH W/CODEINE #3 TAB UD PO SCH ×4 (11:30→21:00)
[2019-04-27] MEDS: KCL 40MEQ in NS 1000ML 1,000 ML IV SCH (12:16)
[2019-04-27 12:55] LABS: CLOSTRIDIUM DIFFICILE PCR NEGATIVE (NEGATIVE)
[2019-04-27 14:00] VITALS: BP 138/72
[2019-04-27 15:31] VITALS: O2SAT 100
--- NOTE | 2019-04-27 17:23 | IPNPDOC ---
Subjective Date Seen The patient was seen on 04/27/19. Subjective Chief Complaint/HPI diarrhea, liquid brown for 2 days. no fever or chills, says having cramps and gaseous distension. Having trouble swallowing. can only swallow standing up otherwise starts coughing. Cannot lay down in bed as this makes him cough severely. no fever or chills, doing his own tracheostomy care. Objective Physical Examination General Exam: Positive: Alert, Cooperative, No Acute Distress Eye Exam: Positive: PERRLA, Conjunctiva & lids normal; Negative: Sclera icteric ENT Exam: Positive: Mucous membr. moist/pink, Tongue Midline, Other ENT (new tracheostomy) Neck Exam: Positive: Supple; Negative: JVD, thyromegaly Chest Exam: Positive: Clear to auscultation, Normal air movement Heart Exam: Positive: Rate Normal, Regular Rhythm, Normal S1, Normal S2; Negative: Murmurs, Rubs Telemetry: Positive: No significant arrhythmia Abdomen Exam: Positive: Normal bowel sounds, Soft; Negative: Tenderness, Hepatospenomegaly Male Exam: Positive: Normal Genital Exam Extremity Exam: Positive: Normal pulses; Negative: Clubbing, Cyanosis, Edema Skin Exam: Positive: Nl turgor and temperature; Negative: Breakdown, Lesion Neuro Exam: Positive: Normal Gait, Normal Speech, Cranial Nerves 3-12 NL, Reflexes 2+ Psych Exam: Positive: Mental status NL, Mood NL, Oriented x 3 Assessment /Plan Assessment 53 year old male with PMH of obesity, UZMA, hyperlipidemia, GERD came to the hospital today for a same day surgery for direct laryngoscopy and biopsy by Dr Abraham of a mass at the base of the tongue. During GA when the automatic log cut off sawyer went in to intubate the patient there was large friable cauliflower like mass encroaching the base of the tongue, around the cords which started bleeding profusely and the oral cavity filled up with blood . Blood was suctioned and then the anesthesiologist tried to intubate but the tube could not be passed and again profuse bleeding occurred. An urgent tracheostomy was done by the surgeon Dr Abraham. He had about 200 cc blood loss. In the PACU as soon as he was waking up he started coughing severely and this caused profuse bleeding from one side of the tracheostomy. So the surgeon felt patient needed to be sedated and ventilated to give a little time for it to heal. Hospitalist was consulted for admission . Patient was admitted to ICU. S/P urgent Tracheostomy due to massive bleeding from the mass during attempted intubation. Has obstructive mass at the base of the tongue encroaching around the vocal cords. Had significant bleeding with coughing in PACU so was decided to sedate him with propofol with back up ventilation and admited him to ICU.. bleeding has now resolved, Patient on trach collar. tacheostomy management as per Dr Abraham Then advance diet as tolerated. large amounts of foul smelling phlegm from the tracheotomy started on zosyn. poor oral fluid intake so started on IVF. swallow evaluation done, getting cookie swallow today As per Dr Abraham tracheostomy change in a week after surgery to a smaller fenestrated one. however does not need to stain [facility] for that. As soon as he can tolerate full liquids and take oral antibiotics he can potentially go home Diarrhea c diff negative antibiotic related. 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 pain control with toradol prn UZMA now has tracheostomy GI prophylaxis with pantoprazole Significant daily alcohol use will put on CIWA protocol and ativan prn. DVT prophylaxis mechanical. Plan/VTE VTE Prophylaxis Ordered?: Yes VS, I&O, 24H, Fishbone Vital Signs/I&O Vital Signs Date Time Temp Pulse Resp B/P (MAP) Pulse Ox O2 Delivery O2 Flow Rate FiO2 04/27/19 15:31 100 Trach Collar 5.0 28 04/27/19 06:00 97.1 94 20 140/86 (104) I&O- Last 24 Hours up to 6 AM 04/27/19 06:00 Intake Total 2190 ml Output Total 0 ml Balance 2190 ml Laboratory Data 24H LABS Laboratory Tests 2 04/27/19 06:18: Immature Granulocyte % (Auto) 0.8, White Blood Count 13.3H, Red Blood Count 4.10L, Hemoglobin 12.5L, Hematocrit 38.5L, Mean Corpuscular Volume 93.9, Mean Corpuscular Hemoglobin 30.5, Mean Corpuscular Hemoglobin Concent 32.5, Red Cell Distribution Width 13.8, Platelet Count 197, Neutrophils (%) (Auto) 80.0H, Lymphocytes (%) (Auto) 6.6L, Monocytes (%) (Auto) 11.0H, Eosinophils (%) (Auto) 1.2, Basophils (%) (Auto) 0.4, Neutrophils # (Auto) 10.6H, Lymphocytes # (Auto) 0.9L, Monocytes # (Auto) 1.5H, Eosinophils # (Auto) 0.2, Basophils # (Auto) 0.1, Nucleated Red Blood Cells % (auto) 0.0, Anion Gap 5L, Glomerular Filtration Rate > 60.0, Blood Urea Nitrogen 15, Creatinine 0.91, Sodium Level 142, Potassium Level 3.3L, Chloride Level 110H, Carbon Dioxide Level 27, Calcium Level 8.5 04/27/19 11:49: Clostridium difficile [id number] PRESUMPTIVE NEGATIVE, Clostridium difficile Toxin (PCR) NEGATIVE CBC/BMP Laboratory Tests 04/27/19 06:18 Red Blood Count 4.10 L, Mean Corpuscular Volume 93.9, Mean Corpuscular Hemoglobin 30.5, Mean Corpuscular Hemoglobin Concent 32.5, Red Cell Distribution Width 13.8, Neutrophils (%) (Auto) 80.0 H, Lymphocytes (%) (Auto) 6.6 L, Monocytes (%) (Auto) 11.0 H, Eosinophils (%) (Auto) 1.2, Basophils (%) (Auto) 0.4, Neutrophils # (Auto) 10.6 H, Lymphocytes # (Auto) 0.9 L, Monocytes # (Auto) 1.5 H, Eosinophils # (Auto) 0.2, Basophils # (Auto) 0.1, Calcium Level 8.5 Microbiology Microbiology 04/25/19 Gram Stain - Final, Complete 04/25/19 Sputum Culture - Final, Complete LEONORA TOMLINSON MD Apr 27, 2019 17:23
--- NOTE | 2019-04-27 18:51 | REP ---
Examination Requested: Cookie Swallow Reason For Exam: Evaluate swallowing mechanism The procedure was performed by PAULO Chi, under the direct supervision of Dr. Foley. The procedure was performed with Sara Elaine from speech pathology present. 5 ml aliquots of thin and nectar consistency barium was administered. Penetration with aspiration was noted with nectar thick consistencies. The detailed report of this examination will be provided by speech pathology. 1.0 minutes of fluoroscopy time was utilized for this procedure. Reviewed by PAULO Grubbs 04/27/2019 02:56 P Electronically Signed by Yobany Foley MD 04/27/2019 06:42 P
[2019-04-27 22:00] VITALS: BP 137/86
[2019-04-28] MEDS: KCL 40MEQ in NS 1000ML 1,000 ML IV SCH ×2 (00:20→16:51)
[2019-04-28] MEDS: ACETAMINOPH W/CODEINE #3 TAB UD PO SCH ×6 (01:00→20:38)
[2019-04-28] MEDS: IPRATROPIUM 0.5MG/ALBUTEROL 2.5MG INH SOL UD 3ML (DUONEB)(J7620) NEB SCH ×5 (02:30→18:21)
[2019-04-28] MEDS: BACITRACIN OINT 30GM TOP PRN (03:33)
[2019-04-28] MEDS: PIPERACILLIN/TAZOBACTAM SOD 3.375 GM in D5W MINI-BAG PLUS 50 ML IV SCH ×2 (04:00→11:44)
[2019-04-28 06:00] VITALS: BP 149/96
[2019-04-28 06:23] LABS: BASO # 0.1 10^3/uL (0.0-0.2); BASO % 0.6 % (0.0-1.0); EOS # 0.2 10^3/uL (0.0-0.5); EOS % 1.8 % (0.0-3.0); HEMATOCRIT 35.6 % (42.0-52.0); HEMOGLOBIN 11.5 g/dl (13.5-17.5); LYMPH # 1.1 10^3/uL (1.5-5.0); LYMPH % 10.2 % (24.0-44.0); MEAN CORPUSCULAR HEMOGLOBIN 29.9 pg (27.0-33.0); MEAN CORPUSCULAR HGB CONC 32.3 g/dl (32.0-36.5); MEAN CORPUSCULAR VOLUME 92.7 fl (80.0-96.0); MONO # 1.4 10^3/uL (0.0-0.8); MONO % 13.3 % (0.0-5.0); NEUTROPHILS # 7.6 10^3/uL (1.5-8.5); NEUTROPHILS % 73.3 % (36.0-66.0); PLATELET COUNT, AUTOMATED 200 10^3/uL (150-450); RED BLOOD COUNT 3.84 10^6/uL (4.30-6.10); WHITE BLOOD COUNT 10.4 10^3/uL (4.0-10.0)
[2019-04-28 06:43] LABS: BLOOD UREA NITROGEN 14 MG/DL (7-18); CALCIUM LEVEL 8.5 MG/DL (8.5-10.1); CARBON DIOXIDE LEVEL 26 MEQ/L (21-32); CHLORIDE LEVEL 110 MEQ/L (98-107); CREATININE FOR GFR 0.94 MG/DL (0.70-1.30); GLOMERULAR FILTRATION RATE > 60.0 (>56); GLUCOSE, FASTING 101 MG/DL (70-100); POTASSIUM SERUM 3.4 MEQ/L (3.5-5.1); SODIUM LEVEL 142 MEQ/L (136-145)
--- NOTE | 2019-04-28 09:27 | REP ---
Portable chest x-ray: Single view. History: Cough. Comparison study: April 23, 2019. Findings: Tracheostomy tube remains in good position. The lungs are symmetrically aerated and clear. Pleural angles are sharp. Heart size is normal. Pulmonary vasculature is not increased. Impression: Tracheostomy tube in place. No active disease. Electronically Signed by Yobany Foley MD 04/28/2019 11:26 A
[2019-04-28] MEDS: OMEPRAZOLE 20 MG CAP PO SCH (09:56)
[2019-04-28] MEDS: CHLORHEXIDINE GLUCONATE 0.12 % 15ML UDC (PERIDEX ORAL RINSE) MT SCH ×2 (09:56→20:40)
[2019-04-28] MEDS: PANTOPRAZOLE 40MG INJ (PROTONIX) (C9113) IV SCH (09:56)
[2019-04-28 14:00] VITALS: BP 130/65
[2019-04-28] MEDS ORDERED: POTASSIUM CHLORIDE 10% LIQ 20 MEQ/15 ML UDC PO ONE (16:00)
--- NOTE | 2019-04-28 17:11 | IPN ---
DATE: 04/28/2019 Per nursing and the patient, he complains of slight discomfort at the tracheostomy site where the blade is located. Per Dr. Abraham, this will be changed on prior to hospital discharge. The patient has been doing well with a pureed diet and crushed medications with applesauce. He has an appointment to see Dr. Oro on 05/05/[address] Acosta has been consulted for feeding tube placement. If unable to be placed by , outpatient followup with Dr. Acosta for feeding tube placement prior to radiation. The patient does not currently have any pain. He states that his will help him with suctioning at home and he can teach her. Afebrile overnight. Despite copious amounts of sputum production, sputum culture was negative and had normal dahiana. Chest x-ray showed no active disease and IV Zosyn has been discontinued. VITAL SIGNS: Temperature 97.3, pulse 81, respiratory rate 18, blood pressure 149/96, 97% on 28% FiO2 with tracheostomy. GENERAL: Awake, alert, oriented to person, place and time. The patient was able to speak comfortably by covering his trach. He has no drainage currently. Anicteric sclerae. No jaundice. Moist mucous membranes. LUNGS: Clear to auscultation. HEART: S1, S2. Sinus. ABDOMEN: Soft, nontender, nondistended. Positive bowel sounds. No hepatosplenomegaly. No rebound or guarding. EXTREMITIES: No cyanosis, clubbing or pitting edema. LABORATORY DATA: White count 10, hemoglobin 11.5, hematocrit 35, platelet count 200. Sodium 142, potassium 3.4, chloride 110, bicarbonate 26, BUN 14, creatinine 0.94, glucose of 101. Chest x-ray showed no active disease. Tracheostomy. ASSESSMENT AND PLAN: This is a 53-year-old who was admitted after having massive bleeding during a direct laryngoscopy with biopsy with Dr. Abraham. The patient underwent emergency tracheostomy with about 200 mL of blood loss. The patient was sedated and ventilated to allow for healing. Biopsy showed squamous cell cancer, moderately differentiated at the base of the tongue. The patient was subsequently extubated. He has been advanced on his diet to pureed. CURRENT ISSUES: 1. Moderate differentiated squamous cell cancer of the tongue with extensive bleeding during biopsy. Emergency tracheostomy was done, status post ventilation. Tracheostomy is to be changed by Dr. Abraham on . He had been on IV Zosyn due to foul smelling sputum, which was negative on culture. White count has decreased. Family has requested a second opinion at [facility] in [place]. Information has been sent. [place] will contact the family for an appointment. The patient is due for radiation with Dr. Oro, appointment will be on 05/05/2019. Feeding tube was to be placed by general surgery but if unable to do this prior to discharge on then the patient can be referred out to Dr. Acosta as an outpatient for feeding tube. 2. Obstructive sleep apnea, currently with tracheostomy. 3. Significant daily alcohol use. The patient has not had any withdrawal symptoms. Clinical [place] Withdrawal Assessment (CIWA) protocol has been discontinued. MTDD
[2019-04-28 22:00] VITALS: BP 136/93
[2019-04-29] MEDS: ACETAMINOPH W/CODEINE #3 TAB UD PO SCH ×6 (00:29→21:00)
[2019-04-29] MEDS: KCL 40MEQ in NS 1000ML 1,000 ML IV SCH (03:00)
[2019-04-29] MEDS: IPRATROPIUM 0.5MG/ALBUTEROL 2.5MG INH SOL UD 3ML (DUONEB)(J7620) NEB SCH ×6 (04:29→20:45)
[2019-04-29] MEDS: BACITRACIN OINT 30GM TOP PRN (05:09)
[2019-04-29 06:00] VITALS: BP 136/92
[2019-04-29 06:51] LABS: BASO % 0.3 % (0.0-1.0); EOS # 0.2 10^3/uL (0.0-0.5); EOS % 1.8 % (0.0-3.0); HEMATOCRIT 36.6 % (42.0-52.0); HEMOGLOBIN 11.9 g/dl (13.5-17.5); LYMPH % 9.7 % (24.0-44.0); MEAN CORPUSCULAR HEMOGLOBIN 29.9 pg (27.0-33.0); MEAN CORPUSCULAR HGB CONC 32.5 g/dl (32.0-36.5); MONO % 10.3 % (0.0-5.0); NEUTROPHILS # 7.6 10^3/uL (1.5-8.5); NEUTROPHILS % 76.8 % (36.0-66.0); PLATELET COUNT, AUTOMATED 207 10^3/uL (150-450); RED BLOOD COUNT 3.98 10^6/uL (4.30-6.10)
[2019-04-29 07:19] LABS: BLOOD UREA NITROGEN 10 MG/DL (7-18); CALCIUM LEVEL 8.5 MG/DL (8.5-10.1); CARBON DIOXIDE LEVEL 25 MEQ/L (21-32); CHLORIDE LEVEL 112 MEQ/L (98-107); CREATININE FOR GFR 0.81 MG/DL (0.70-1.30); GLOMERULAR FILTRATION RATE > 60.0 (>56); GLUCOSE, FASTING 101 MG/DL (70-100); POTASSIUM SERUM 3.7 MEQ/L (3.5-5.1); SODIUM LEVEL 142 MEQ/L (136-145)
[2019-04-29] MEDS ORDERED: IPRA0.00 NEB (08:27)
[2019-04-29] MEDS ORDERED: BACI50OI TOP (08:27)
[2019-04-29] MEDS ORDERED: ACET1TAB16 PO (08:27)
[2019-04-29] MEDS ORDERED: COMPMIS43 XX (08:29)
[2019-04-29] MEDS ORDERED: [UNRECOGNIZED DRUG - CODE] XX (08:29)
--- NOTE | 2019-04-29 08:32 | CR ---
RADIATION ONCOLOGY CONSULTATION NOTE DATE: 04/27/2019 CHART NUMBER: [id number] DIAGNOSIS: Base of tongue cancer. STAGE: In progress. ECOG PERFORMANCE STATUS : 1 Mr. Denise is a very pleasant 53-year-old white male with the diagnosis of what appears to be a moderately differentiated squamous cell carcinoma of his base of tongue. We are seeing this patient in his hospital room today to set him up for an official consultation on Saturday. HISTORY OF PRESENT ILLNESS: The patient was in his usual state of health but developed some discomfort in the back of his tongue. He was evaluated by Dr. Gentry Abraham who found a lesion involving the base of his tongue. On 04/07/[address] scan of the neck was undertaken and a supraglottic mass measuring 3.2 cm x 2.5 cm in greatest transverse dimension was seen involving his epiglottis and supraglottic larynx. It was predominantly right-sided across the midline in the anterior preglottic space. The epiglottis was thickened. On 04/23/2019 the patient underwent a biopsy of his base of tongue and pathology revealed a moderately differentiated squamous cell carcinoma. The tumor bled and a tracheotomy was required, which was done on 04/23/2019 as well. I have spoken about this case with Dr. Claudio as well as the nurse navigator. We set up the patient to be seen in our office on Saturday. In the meantime, I have requested a dental consultation as well as a surgical consultation for placement of a PEG tube. A medical oncology consultation has been called and I have requested a PET CT scan. We did visit with the patient and his family and answered multiple questions. At this time, we do not have all of the information, but further education and official consultation will be undertaken when we see him on May 05. cc: Gentry Abraham MD
[2019-04-29] MEDS: CHLORHEXIDINE GLUCONATE 0.12 % 15ML UDC (PERIDEX ORAL RINSE) MT SCH ×2 (09:39→21:42)
[2019-04-29] MEDS: PANTOPRAZOLE 40MG INJ (PROTONIX) (C9113) IV SCH (09:39)
[2019-04-29] MEDS: OMEPRAZOLE 20 MG CAP PO SCH (09:39)
--- NOTE | 2019-04-29 10:38 | REP ---
Single view chest: 04/29/2019. Indication: Cough. Comparison: 04/23/2019. Findings: The lungs are clear. There is a very small right pleural effusion. There is no pneumothorax. Tracheostomy is noted. Cardiac silhouette is within normal limits. Impression: Clear lungs. Small right pleural effusion. Electronically Signed by Masood Hunt DO 04/29/2019 10:29 A
--- NOTE | 2019-04-29 12:47 | IPN ---
DATE OF SERVICE: 04/29/2019 The patient complains of three-pillow orthopnea, unable to lie down without complaints of cough and shortness of breath. The patient had been on intravenous (IV) fluids for the past 2 days. Has been at positive balance. He says nebulizer treatments help. He still has copious amounts of phlegm production. No fever or chills. Sputum culture was negative with normal dahiana present. VITAL SIGNS: Temperature 98.9, pulse 104, respiratory rate 20, blood pressure 136/92, 98% on 5 liters, FIO2 28%. Generally, awake, alert, oriented times three. Tracheostomy noted. No significant drainage. Able to speak without much difficulty. LUNGS: Are clear to auscultation. No wheezing or rales. HEART: S1, S2. Sinus tachycardia. ABDOMEN: Obese, soft, nontender, nondistended. Positive bowel sounds. EXTREMITIES: No cyanosis, clubbing, or pitting edema. LABORATORY DATA: White count 10, hemoglobin 11, hematocrit 36, platelet count 207. Sodium 142, potassium 3.7, chloride 112, bicarbonate 25, BUN 10, creatinine 0.81, glucose of 101. Sputum culture is negative. Chest x-ray 04/28/2019: Trache tube in place. No active disease. ASSESSMENT AND PLAN: A 53-year-old longtime tobacco with a history of alcohol abuse admitted after bleeding during direct laryngoscopy with biopsy with Dr. Abraham. Underwent emergency tracheostomy with 200 mL of blood loss. Ventilated. In intensive care unit (ICU). Extubated. 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 The patient is to have a positron emission tomography (PET) scan as outpatient and radiation to be scheduled by radiation oncology on 05/05/2019. Dental consultation and feeding tube placement. The patient has asked for a second opinion at [facility], as well as [facility]. Appointments will be done before discharge. Obstructive sleep apnea, currently with tracheostomy and oxygen. Alcohol abuse. No signs of withdrawal. DISPOSITION: Discharge on after trache change. Speech therapy recommended pureed diet. Outpatient followup with Dr. Acosta for feeding tube placement. [facility]
[2019-04-29 14:00] VITALS: BP 149/91
[2019-04-29] MEDS ORDERED: AERO1MIS2 XX (15:44)
[2019-04-29 20:00] VITALS: BP 178/88
[2019-04-30] MEDS: IPRATROPIUM 0.5MG/ALBUTEROL 2.5MG INH SOL UD 3ML (DUONEB)(J7620) NEB SCH ×5 (00:34→15:36)
[2019-04-30] MEDS: ACETAMINOPH W/CODEINE #3 TAB UD PO SCH ×5 (01:00→13:03)
[2019-04-30 06:00] VITALS: BP 135/79
[2019-04-30 06:18] LABS: BASO % 0.2 % (0.0-1.0); EOS # 0.2 10^3/uL (0.0-0.5); EOS % 1.2 % (0.0-3.0); HEMATOCRIT 37.2 % (42.0-52.0); HEMOGLOBIN 12.4 g/dl (13.5-17.5); LYMPH # 1.2 10^3/uL (1.5-5.0); LYMPH % 8.5 % (24.0-44.0); MEAN CORPUSCULAR HEMOGLOBIN 30.2 pg (27.0-33.0); MEAN CORPUSCULAR HGB CONC 33.3 g/dl (32.0-36.5); MEAN CORPUSCULAR VOLUME 90.7 fl (80.0-96.0); MONO # 1.2 10^3/uL (0.0-0.8); MONO % 8.5 % (0.0-5.0); NEUTROPHILS # 11.1 10^3/uL (1.5-8.5); NEUTROPHILS % 80.7 % (36.0-66.0); PLATELET COUNT, AUTOMATED 226 10^3/uL (150-450); WHITE BLOOD COUNT 13.8 10^3/uL (4.0-10.0)
[2019-04-30 06:42] LABS: BLOOD UREA NITROGEN 9 MG/DL (7-18); CALCIUM LEVEL 8.7 MG/DL (8.5-10.1); CARBON DIOXIDE LEVEL 26 MEQ/L (21-32); CHLORIDE LEVEL 110 MEQ/L (98-107); GLOMERULAR FILTRATION RATE > 60.0 (>56); GLUCOSE, FASTING 96 MG/DL (70-100); POTASSIUM SERUM 3.6 MEQ/L (3.5-5.1); SODIUM LEVEL 140 MEQ/L (136-145)
[2019-04-30] MEDS: CHLORHEXIDINE GLUCONATE 0.12 % 15ML UDC (PERIDEX ORAL RINSE) MT SCH (09:05)
[2019-04-30] MEDS: PANTOPRAZOLE 40MG INJ (PROTONIX) (C9113) IV SCH (09:05)
[2019-04-30] MEDS: OMEPRAZOLE 20 MG CAP PO SCH (09:05)
--- NOTE | 2019-04-30 09:39 | CR ---
DATE OF CONSULTATION: 04/29/2019 REASON FOR CONSULTATION: Question percutaneous endoscopic gastrostomy (PEG) tube. BRIEF HISTORY OF PRESENT ILLNESS: The patient is a 53-year-old gentleman, who was admitted after undergoing emergency trache after having an upper scope by ENT for a lesion at the base of the tongue essentially never ended up proceeding with the procedure at the beginning because of the bleeding encountered in the back of the posterior oropharynx and essentially revealed a large mass that was extremely friable at the base of tongue/above the cords. In any case, the patient had a trache placed and since that time has been doing slowly better improving. He has been on the pureed diet and tolerating this. He did have some dysphasia prior to admission and the dysphagia was a little progressive over the last week. I was asked to place a PEG tube or at least discuss the options with him. His past medical history is significant for gastroesophageal (GE) reflux, history of sleep apnea, umbilical hernia, history of smoking, history of cholecystectomy. Physical exam reveals a 53-year-old male who looks stated age. HEENT is unremarkable except for the trache in place. Lungs are clear anteriorly. Heart is regular. Abdomen soft, nontender, nondistended. IMPRESSION/PLAN: The patient has evidence of a base of tongue/oropharyngeal cancer that is a squamous cancer and the patient has plans for a second opinion in [place]. At this point, I do feel it is reasonable for him to pursue that. I have discussed with him that the upper endoscopy may have a slight increased risk of bleeding associated with this large mass in the posterior oropharynx and he has options of either an upper endoscopy with a PEG tube or a percutaneous gastrostomy tube through interventional radiology. I feel either is a reasonable option, although I am slightly concerned that the lesion in the posterior pharynx will need to be done in the operating room because of its increased likelihood of bleeding and thus may need general instead of simple sedation. We will ask his second opinion in [place] to help us guide the next step for him, including percutaneous versus PEG tube placement and the patient will contact us/my office after his consultation for a PEG tube should that be necessary.
[2019-04-30] MEDS ORDERED: CIPR-249 PO (14:48)
[2019-04-30] MEDS ORDERED: CIPROFLOXACIN 500 MG TAB PO SCH (18:00)
--- NOTE | 2019-04-30 20:06 | DSES ---
DATE OF ADMISSION: 04/23/2019 DATE OF DISCHARGE: 04/30/2019 CONSULTANTS DURING THIS ADMISSION: ENT, Dr. Gentry Abraham. Layer Out, Dr. Jensen and Dr. Em. Radiation oncologist, Dr. Oro. General surgeon, Dr. Dontrell Acosta. PRIMARY DISCHARGE DIAGNOSES: 1. Squamous cell cancer at the base of the tongue. 2. Acute blood loss anemia requiring emergency tracheostomy, mechanically ventilated due to airway compromise. 3. Anti related diarrhea. 4. Obstructive sleep apnea with tracheostomy. HOSPITAL COURSE: 53-year-old male with a history of obesity, hyperlipidemia, reflux, presented for same day surgery for direct laryngoscopy and biopsy by Dr. Abraham due to tongue mass. During general anesthesia, there was a large friable cauliflower like lesion encroaching the base of the mass around the cords, which bled profusely and oral cavity filled up with blood. Despite suctioning, anesthesiologist was unable to intubate and the tube could not passed. Urgent tracheostomy was done by ENT surgeon, Dr. Abraham, with 200 mL of blood loss. In the recovery room, the patient started coughing severely with profuse bleeding from one side of the tracheostomy. The patient was subsequently sedated and was ventilated. Dr. Jensen managed the patient's ventilatory needs. After extubation, the patient was transferred to the hospitalist service. The patient did have foul smelling phlegm from the tracheostomy and was started on intravenous Zosyn. He was kept on intravenous fluids. Microbiology was negative. Sputum culture showed normal dahiana. Chest x-ray was clear lungs. Cardiac size is enlarged, which is an interval change. The patient had 100.3 temperature on 04/23/2019 and remained afebrile since until the day of discharge on 04/30/2019. White count normalized to 10 on 04/29/2019, increased to 13.8, discharged on Cipro for [address] Oro, PET scan was arranged. Feeding tube to be placed by Dr. Acosta as an outpatient, as it could not be placed prior to hospital discharge. The patient did have a fenestrated trach placed. He had no other issues, tolerated his pureed diet. During this admission, medications were taken with applesauce and crushed. He wanted to have a second opinion at [facility], all of which were arranged as an outpatient. LABORATORIES ON DISCHARGE: White count 13.8, hemoglobin 12, hematocrit 37, platelet count 226. Sodium 140, potassium 3.6, chloride 110, bicarbonate 26, BUN 9, creatinine 0.8, glucose of 96. Sputum culture on 04/25/2019 showed normal dahiana present. IMAGING STUDIES: Chest x-ray showed clear lungs. Cookie swallow on 04/27/2019 demonstrated penetration with aspiration noted with nectar thickened consistency. Diet is pureed diet. Outpatient followup with Dr. Acosta for feeding tube placement. Time spent on discharge: 30 minutes. [facility]
== END 2019-04-30 16:17 | disposition home health service (06) | DRG 950 ==
LOC: M SDC 08:39 → M ICU 14:24 → M MSPAV 04-25 15:22
PROVIDERS: ADMIT Otolaryngology; ATTEND General Practice
PROC: 0CB70ZX Excision of Tongue, Open Approach, Diagnostic (ICD-10-PCS; 2019-04-23)
PROC: 5A1945Z Respiratory Ventilation, 24-96 Consecutive Hours (ICD-10-PCS; 2019-04-23)
PROC: 0B110F4 Bypass Trachea to Cutaneous with Tracheostomy Device, Open Approach (ICD-10-PCS; principal; 2019-04-23 10:00)
DX: K91.61 Intraoperative hemorrhage and hematoma of a digestive system organ or structure complicating a digestive system procedure (principal); I97.42 Intraoperative hemorrhage and hematoma of a circulatory system organ or structure complicating other procedure; C01 Malignant neoplasm of base of tongue; J98.11 Atelectasis; G47.33 Obstructive sleep apnea (adult) (pediatric); R19.7 Diarrhea, unspecified; E66.9 Obesity, unspecified; E78.5 Hyperlipidemia, unspecified; K21.9 Gastro-esophageal reflux disease without esophagitis; Z87.891 Personal history of nicotine dependence; F10.10 Alcohol abuse, uncomplicated; D62 Acute posthemorrhagic anemia

== ENCOUNTER → 2019-05-05 | Outpatient (CLI) | payer BC, OTHER ==
[~2019-05-05] MED LIST changes: +ACET1TAB16 PO; +AERO1MIS2 XX; +BACI50OI TOP; +CIPR-249 PO; +COMPMIS43 XX; +IPRA0.00 NEB; -LIDOCAINE 2% INJ 100 MG/5 ML SDV (FOR ANES.) As Ordered ONE; -MIDAZOLAM INJ 2 MG/2 ML VIAL (J2250) As Ordered ONE; -PROPOFOL 200 MG/20 ML VIAL As Ordered ONE; -ROCURONIUM BROMIDE 50 MG/5 ML VIAL As Ordered ONE; +[UNRECOGNIZED DRUG - CODE] XX; -fentaNYL 100 MCG/2 ML INJECTION (J3010) As Ordered ONE
--- NOTE | 2019-05-07 07:46 | RADONC ---
RADIATION ONCOLOGY CONSULTATION NOTE DATE: 05/05/2019 CHART #: [id number] DIAGNOSIS: Squamous cell carcinoma, moderately differentiated involving the base of tongue with some questionable involvement of the right supraglottic larynx. STAGE: Minimal T2N0M0. ECOG performance status: 1. ICD-10 Code: C01. HISTORY OF PRESENT ILLNESS: The patient is a 53-year-old man who was seen by Dr. Oro in the hospital on 04/27/2019. He has a history of some progressive issues with increased copious drainage in his sinuses which was initially felt to most likely be secondary to a chronic sinusitis. This has been ongoing for the last month or even perhaps a little longer. He was placed on antibiotics and the infection cleared up somewhat, but in fact it has never completely gone away. In addition, the patient has evidence of some pain and neurologic deficit involving the left oropharyngeal area. He cannot extend his tongue to the left oral mucosa. He also has pains shooting from his right eyebrow area down to his right jaw which are inconsistently present and somewhat related to movement of his head. He was seen by Dr. Abraham and it was highly suspected that he may have a neoplastic disorder when his antibiotics failed to clear up the entire what was felt to be an infectious process primarily involving the sinusitis and, in addition, the patient does have a history of smoking for approximately 20 years one pack per day, however, he quit approximately 5 years ago. He was scheduled for a direct endoscopy as the patient continued to have symptoms and apparently on 04/23/2019 he was taken to the operating room (OR) for evaluation of what now may be a tumor involving the base of tongue and supraglottic larynx on the right. Dr. Primo Claudio was also present at the time of his evaluation. Under general anesthesia, the patient was difficult to intubate because he had developed bleeding from a friable tumor. A tracheostomy was therefore performed and once the trache tube had been sutured in place the laryngoscopic examination was performed. The surgeon was unable to get a good look at the cords because of a large mass at the base of the tongue which extended down toward the epiglottis. A CT scan had been performed and did demonstrate a supraglottic right sided mass. The surgeon could not get underneath the epiglottis to elevate it out of the way because the tumor had extended to the left of midline from the right side. The tumor was fungating and bled easily and several biopsies were performed. It was felt by the surgeon that the tumor was probably approximately 3-4 cm in greatest dimension and the pyriform sinus on both sides was clear. The posterior cricoid area was also clear. The patient was seen by Dr. Oro at that time and he ordered a PET scan for appropriate staging and as well a PEG tube for feeding support. A dental evaluation was also ordered. The PET scan is scheduled for May 13 and incidentally the patient is planning on proceeding to [place] to be seen at the [facility] on 05/06/2019. I believe the actual appointment is on 05/07/2019. He comes today for evaluation of local regional radiotherapy and we are awaiting the PET scan to be performed in order to appropriately stage the patient. Some of his symptoms have continuously persisted and perhaps even gotten worse where as some are stabilized. He still has a great deal of postnasal drip and some discomfort in the posterior pharyngeal area. He can swallow without significant difficulty, but he has pain involving the right side of his facial area which radiates down across the right side of his face. He also has some tethering of the tongue and immobilization of the tongue. He feels that he cannot extend the tongue to the left side of his oral cavity as he could before. As stated by the surgeon, the tumor was primarily located on the right, but extended across the midline to the left. The chest x-ray incidentally was negative. It is assumed that the patient will require perhaps combination radiotherapy/ chemotherapy depending upon his stage. MEDICAL HISTORY: Significant for gastroesophageal reflux, sleep apnea, umbilical hernia, history of smoking, history of cholecystectomy. ALLERGIES: NO KNOWN DRUG ALLERGIES. OCCUPATIONAL HISTORY: The patient has been employed and working daily without significant interruption. CURRENT MEDICATIONS: Acetaminophen and codeine 1 tablet q.4 h p.r.n. pain, albuterol, bacitracin, ciprofloxacin, nebulizer (Aeroneb Go nebulizer), omeprazole 40 mg daily. [email or web address] REVIEW OF SYSTEMS: Respiratory: The patient has no significant problems, but a trache has been performed because of some local bleeding at the time of his laryngoscopy. Psychiatric: Denies delusions, hallucinations, depression, or mood swings. Neurologic: Denies disorientation, dizziness, gait problems, headaches, insomnia, memory loss, neuropathy, paralysis, seizure activity, sensory deficits or strokes. Neck: The patient has noted no swelling, but he has a tracheostomy which obscures some of the clinical physical examination. He does have some pain in the right side of his face. Musculoskeletal: Denies arthritis, bone pain, joint pain, muscle weakness or range of motion difficulties. Hematologic/Lymphatic: Denies easy bruising or lymphadenopathy. Head: He denies any alopecia, but he does have pain that radiates down from his eyebrow to his jaw intermittent in nature and he does not describe it as severe pain, but more of a very mild annoying sensation. Genitourinary: Denies dysuria, frequency, hematuria, impotence, incontinence, nocturia, renal stones, retrograde ejaculation, scrotal swelling or urgency. Gastrointestinal: Denies changes in bowel habits such as constipation or diarrhea. He does have a history of gastroesophageal reflux disease and is on medication. He denies hematemesis, hematochezia, hemorrhoids, melena, nausea, vomiting, abdominal pain, early satiety. HEENT: He does have some ear pain on the right. He denies epistaxis, but has a considerable amount of drainage. He has a history of esophagitis. He denies hearing difficulties, mouth dryness, oral bleeding, otitis. He has a history of sinusitis. Denies any sputum production or stomatitis. He denies altered taste or tinnitus. Constitutional: He has a fairly good appetite. Denies fatigue, fevers, lethargy, malaise, night sweats, rigors or weight change. Allergic: He has a great deal of postnasal drip and has had difficulty breathing for several months and he had a presumed sinus infection according to the patient. EXAMINATION FINDINGS: The patient is a well oriented appearing male who looks appropriate for his stated age. Height 70 inches, weight 233, temperature 98.2, pulse 89, respirations 18, systolic blood pressure 127, diastolic blood pressure 82, O2 saturation 97% on room air. HEENT: The patient has no demonstrable abnormalities externally with the exception of a trache which is in place. Lungs are clear to auscultation and percussion. Heart: Regular without murmurs. Abdomen: Without evidence of hepatomegaly, masses, deep abdominal tenderness. Extremities: Without cyanosis, clubbing or edema. Neurologic: Examination grossly physiologic and nonfocal. Head and Neck Examination: It is difficult to examine this patient because of a severe gag reflex. His tongue appears to be fairly mobile and I do not palpate any distinct masses nor do I see a protuberant necrotic mass with the direct visualization; however, each time I have him open his mouth he starts spontaneously gagging so it is really quite difficult to evaluate this patient without anesthesia. 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 I believe that we will know a great deal more regarding the extent of his disease after the PET is obtained and he is scheduled to have a PET on 05/13/2019. I think that this patient has a minimal stage T2 lesion and unfortunately it may be more extensive at this point, however, we do not have any studies to suggest the stage, therefore, the stage is actually pending. PLAN OF RADIOTHERAPY: I would imagine the patient will require local regional radiotherapy and most likely systemic chemotherapy. The tumor is minimally a stage T2; however, it appears to either involve extending down to the supraglottic larynx from a base of tongue or conversely extend up into and involve the base of tongue from a primary in the supraglottic larynx. Either way, I believe the PET scan will help us a great deal in determining the extent and course management. Most likely, multimodality therapy, i.e., chemotherapy and radiation will be involved in his treatment management. He is however going to [facility] for a second opinion and I have sent his slides with him so that they can evaluate them, as well as, I believe the other studies that we have available to us at this institution have already been sent to [facility]. Thank you for allowing us the opportunity of participation in the management of this very fine gentleman. cc: MD Dontrell Luna Jr, MD Aruna Ray, MD Norman Weir, MD MTDD
== END ==
LOC: M ONCR 13:22
PROVIDERS: ATTEND Radiology Radiation Oncology
DX: C01 Malignant neoplasm of base of tongue (principal); J38.7 Other diseases of larynx; Z87.891 Personal history of nicotine dependence; Z93.1 Gastrostomy status; R06.00 Dyspnea, unspecified; R09.82 Postnasal drip; G47.30 Sleep apnea, unspecified; K21.9 Gastro-esophageal reflux disease without esophagitis; K42.9 Umbilical hernia without obstruction or gangrene; Z90.49 Acquired absence of other specified parts of digestive tract

== ENCOUNTER → 2019-05-13 | Outpatient (CLI) | payer BC, OTHER ==
--- NOTE | 2019-05-13 12:32 | REP ---
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 Comparisons: Comparison CT study April 07, 2019. TECHNIQUE: 55 minutes following the intravenous injection of a 8.93 mCi dose of F-18 FDG, three-dimensional PET scintigraphy is acquired from the skull base to the proximal thighs. Triplanar noncontrast CT scanning is acquired through the same anatomic range for attenuation correction, and image registration with scan parameters optimized to minimize radiation exposure to the patient. PET scintigraphy and CT datasets were fused and displayed on a workstation with multiplanar and projection display capability. PET/CT Findings: A tracheostomy tube has been placed in the interval since the April 07, 2019 CT study. There is a bulky hypermetabolic lesion in the right posterior tongue and floor of mouth extending caudally to involve the pre-epiglottic space and the epiglottis as seen on CT. This is quite hypermetabolic. Maximum standard uptake value ranges up to 23.69 within this lesion. There is a one right cervical hypermetabolic lymph node with maximum standard uptake value 11.61. This is visible on the prior CT and measured 2.0 cm in greatest diameter. It is unchanged in size. No other hypermetabolic naomi uptake is appreciated. Head and neck soft tissues are otherwise unremarkable. There is no abnormal hypermetabolic uptake in the thorax. In the abdomen and pelvis, normal FDG distribution is seen to the liver, spleen, gastrointestinal, and genitourinary tracts. No abnormal hypermetabolic uptake is seen. No abnormal skeletal uptake is seen. The patient is status post right inguinal hernia repair and cholecystectomy. Impression: Large hypermetabolic posterior tongue and floor of mouth lesion extending into the preepiglottic space and superior epiglottis. There is a hypermetabolic enlarged lymph node in the right anterior cervical chain. Electronically Signed by Yobany Foley MD 05/13/2019 12:45 P
== END ==
LOC: M PLARAD 07:39
PROVIDERS: ATTEND Radiology Radiation Oncology
DX: C01 Malignant neoplasm of base of tongue (principal); Z93.0 Tracheostomy status
CPT/HCPCS: 78815; A9552

== ENCOUNTER → 2022-05-01 | Outpatient (REF) | payer OTHER ==
[~2022-05-01] MED LIST changes: -ACET1TAB16 PO; +ACET300T48 PO; -OMEP-221 PO; +OMEP40CA5 PO
[2022-05-01 12:39] LABS: BASO # 0.1 10^3/uL (0.0-0.2); BASO % 0.9 % (0.0-1.0); EOS # 0.2 10^3/uL (0.0-0.5); EOS % 1.9 % (0.0-3.0); HEMATOCRIT 46.8 % (42.0-52.0); HEMOGLOBIN 15.1 g/dl (13.5-17.5); LYMPH # 0.6 10^3/uL (1.5-5.0); MEAN CORPUSCULAR HEMOGLOBIN 30.6 pg (27.0-33.0); MEAN CORPUSCULAR HGB CONC 32.3 g/dl (32.0-36.5); MEAN CORPUSCULAR VOLUME 94.7 fl (80.0-96.0); MONO # 0.8 10^3/uL (0.0-0.8); MONO % 10.2 % (2.0-8.0); NEUTROPHILS # 6.2 10^3/uL (1.5-8.5); NEUTROPHILS % 77.6 % (36.0-66.0); PLATELET COUNT, AUTOMATED 207 10^3/uL (150-450); RED BLOOD COUNT 4.94 10^6/uL (4.30-6.10); WHITE BLOOD COUNT 7.9 10^3/uL (4.0-10.0)
[2022-05-01 13:35] LABS: ALBUMIN 3.9 GM/DL (3.2-5.2); ALT/SGPT 31 U/L (12-78); BILIRUBIN,TOTAL 0.3 MG/DL (0.2-1.0); BLOOD UREA NITROGEN 18 MG/DL (7-18); CALCIUM LEVEL 9.1 MG/DL (8.5-10.1); CARBON DIOXIDE LEVEL 29 MEQ/L (21-32); CHLORIDE LEVEL 108 MEQ/L (98-107); CHOLESTEROL LEVEL 227 MG/DL (<200); CHOLESTEROL RISK RATIO 6.485 (<5); CREATININE FOR GFR 1.03 MG/DL (0.70-1.30); FREE T4 0.73 NG/DL (0.76-1.46); GLOMERULAR FILTRATION RATE > 60.0 (>56); GLUCOSE, FASTING 87 MG/DL (70-100); HDL CHOLESTEROL 35 MG/DL (>40); LDL CHOLESTEROL 148 MG/DL (<100); NON-HDL-C 192 MG/DL; SODIUM LEVEL 141 MEQ/L (136-145); TOTAL PROTEIN 6.7 GM/DL (6.4-8.2); TRIGLYCERIDES LEVEL 219 MG/DL (<150)
[2022-05-01 13:40] LABS: HEMOGLOBIN A1c 5.3 %
[2022-05-02 08:40] LABS: THYROID PEROXIDASE ANTIBODY 32.7 U/ML (<60.0)
[2022-05-02 08:41] LABS: TOTAL T3 135.4 NG/DL (60.0-181.0)
== END ==
LOC: M SFHCCLAY 09:20
PROVIDERS: ATTEND Nurse Practitioner Family
DX: C32.0 Malignant neoplasm of glottis (principal); Z76.89 Persons encountering health services in other specified circumstances; E66.9 Obesity, unspecified; Z68.34 Body mass index [BMI] 34.0-34.9, adult; Z13.1 Encounter for screening for diabetes mellitus

== ENCOUNTER → 2022-05-10 | Outpatient (CLI) | payer BC, OTHER | LOC: M WHC 11:30 | PROVIDERS: ATTEND Nurse Practitioner Family | DX: R94.6 Abnormal results of thyroid function studies (principal) ==

== ENCOUNTER → 2022-06-18 | Outpatient (REF) | payer OTHER ==
[~2022-06-18] MED LIST changes: +LEVO75TA4 PO
[2022-06-18 11:49] LABS: FREE T4 1.12 NG/DL (0.89-1.76); THYROID STIMULATING HORMONE 6.486 uIU/ML (0.55-4.78)
== END ==
LOC: M SFHCCLAY 08:54
PROVIDERS: ATTEND Nurse Practitioner Family
DX: E03.9 Hypothyroidism, unspecified (principal)

== ENCOUNTER → 2022-06-28 | Outpatient (CLI) | payer BC, OTHER | LOC: M LABSMTC 10:32 | PROVIDERS: ATTEND Anesthesiology | DX: Z01.812 Encounter for preprocedural laboratory examination (principal); Z11.52 Encounter for screening for COVID-19 ==

== ENCOUNTER 2022-07-03 09:58 | Day surgery (SDC) | payer BC, OTHER ==
[~2022-07-03] VITALS: Ht 182.9 cm; Wt 113.4 kg
[~2022-07-03 09:58] MED LIST changes: +NS 1,000 ML IV ONE
[2022-07-03] MEDS ORDERED: propofoL 200 MG/20 ML VIAL As Ordered ONE (12:25)
[2022-07-03] MEDS ORDERED: GLYCOPYRROLATE INJ 0.2 MG/ML 2 ML VIAL As Ordered ONE (12:25)
[2022-07-03 12:48] VITALS: BP 144/90
== END 2022-07-03 13:01 | disposition home or self-care (01) ==
LOC: M OPP 09:58
PROVIDERS: ATTEND Internal Medicine Gastroenterology
DX: Z12.11 Encounter for screening for malignant neoplasm of colon (principal); Z86.010 Personal history of colon polyps; K63.5 Polyp of colon; K64.8 Other hemorrhoids; K57.30 Diverticulosis of large intestine without perforation or abscess without bleeding; Z79.82 Long term (current) use of aspirin; Z79.899 Other long term (current) drug therapy; E03.9 Hypothyroidism, unspecified; G47.30 Sleep apnea, unspecified; Z99.89 Dependence on other enabling machines and devices; Z92.3 Personal history of irradiation

== ENCOUNTER → 2023-01-29 | Outpatient (REF) | payer OTHER ==
[~2023-01-29] MED LIST changes: -NS 1,000 ML IV ONE
[2023-01-29 13:08] LABS: BASO % 0.6 % (0.0-1.0); EOS # 0.1 10^3/uL (0.0-0.5); EOS % 1.9 % (0.0-3.0); HEMATOCRIT 44.7 % (42.0-52.0); HEMOGLOBIN 14.5 g/dl (13.5-17.5); LYMPH # 0.8 10^3/uL (1.5-5.0); LYMPH % 11.6 % (24.0-44.0); MEAN CORPUSCULAR HGB CONC 32.4 g/dl (32.0-36.5); MEAN CORPUSCULAR VOLUME 95.5 fl (80.0-96.0); MONO # 0.8 10^3/uL (0.0-0.8); MONO % 11.3 % (2.0-8.0); NEUTROPHILS # 5.4 10^3/uL (1.5-8.5); PLATELET COUNT, AUTOMATED 179 10^3/uL (150-450); RED BLOOD COUNT 4.68 10^6/uL (4.30-6.10); WHITE BLOOD COUNT 7.2 10^3/uL (4.0-10.0)
[2023-01-29 13:23] LABS: HEMOGLOBIN A1c 5.2 % (4.0-6.0)
[2023-01-29 13:29] LABS: THYROID STIMULATING HORMONE 8.245 uIU/ML (0.55-4.78)
[2023-01-29 13:30] LABS: ALBUMIN 3.9 G/DL (3.2-5.2); ALKALINE PHOSPHATASE 75 U/L (46-116); ALT/SGPT 34 U/L (7.0-40); AST/SGOT 18 U/L (<34); BILIRUBIN,TOTAL 0.5 MG/DL (0.3-1.2); BLOOD UREA NITROGEN 18 MG/DL (9-23); CALCIUM LEVEL 8.5 MG/DL (8.5-10.1); CARBON DIOXIDE LEVEL 28 MMOL/L (20-31); CHLORIDE LEVEL 109 MMOL/L (98-107); CHOLESTEROL LEVEL 196 MG/DL (<200); CHOLESTEROL RISK RATIO 5.74 (<5); GLOMERULAR FILTRATION RATE > 60.0 (>56); GLUCOSE, FASTING 95 MG/DL (60-100); HDL CHOLESTEROL 34.1 MG/DL (>40); LDL CHOLESTEROL 124.7 MG/DL (<100); NON-HDL-C 161.9 MG/DL; POTASSIUM SERUM 4.6 MMOL/L (3.5-5.1); SODIUM LEVEL 144 MMOL/L (136-145); TOTAL PROTEIN 6.3 G/DL (5.7-8.2); TRIGLYCERIDES LEVEL 186 MG/DL (<150)
== END ==
LOC: M SFHCCLAY 08:11
PROVIDERS: ATTEND Nurse Practitioner Family
DX: C32.0 Malignant neoplasm of glottis (principal); E03.9 Hypothyroidism, unspecified; E66.9 Obesity, unspecified; Z68.34 Body mass index [BMI] 34.0-34.9, adult; Z76.89 Persons encountering health services in other specified circumstances; Z13.1 Encounter for screening for diabetes mellitus

== ENCOUNTER → 2024-01-30 | Outpatient (REF) | payer BC ==
[2024-01-30 12:05] LABS: BASO # 0.1 10^3/uL (0.0-0.2); BASO % 0.6 % (0.0-1.0); EOS # 0.1 10^3/uL (0.0-0.5); EOS % 1.2 % (0.0-3.0); HEMATOCRIT 49.2 % (42.0-52.0); HEMOGLOBIN 16.3 g/dl (13.5-17.5); LYMPH # 0.8 10^3/uL (1.5-5.0); LYMPH % 8.6 % (24.0-44.0); MEAN CORPUSCULAR HGB CONC 33.1 g/dl (32.0-36.5); MEAN CORPUSCULAR VOLUME 93.7 fl (80.0-96.0); MONO % 10.7 % (2.0-8.0); NEUTROPHILS # 6.9 10^3/uL (1.5-8.5); NEUTROPHILS % 77.8 % (36.0-66.0); PLATELET COUNT, AUTOMATED 186 10^3/uL (150-450); RED BLOOD COUNT 5.25 10^6/uL (4.30-6.10); WHITE BLOOD COUNT 8.9 10^3/uL (4.0-10.0)
[2024-01-30 12:21] LABS: HEMOGLOBIN A1c 5.2 % (4.0-6.0)
[2024-01-30 12:38] LABS: THYROID STIMULATING HORMONE 5.622 uIU/ML (0.55-4.78)
[2024-01-30 12:40] LABS: ALBUMIN 3.9 G/DL (3.2-5.2); ALKALINE PHOSPHATASE 89 U/L (46-116); ALT/SGPT 24 U/L (7.0-40); AST/SGOT 12 U/L (<34); BILIRUBIN,TOTAL 0.7 MG/DL (0.3-1.2); BLOOD UREA NITROGEN 19 MG/DL (9-23); CALCIUM LEVEL 9.3 MG/DL (8.3-10.6); CARBON DIOXIDE LEVEL 30 MMOL/L (20-31); CHLORIDE LEVEL 108 MMOL/L (98-107); CHOLESTEROL LEVEL 223 MG/DL (<200); CHOLESTEROL RISK RATIO 6.99 (<5); CREATININE FOR GFR 1.08 MG/DL (0.70-1.30); GLOMERULAR FILTRATION RATE > 60.0 (>49); GLUCOSE, FASTING 91 MG/DL (74-106); HDL CHOLESTEROL 31.9 MG/DL (>40); LDL CHOLESTEROL 155.3 MG/DL (<100); NON-HDL-C 191.1 MG/DL; SODIUM LEVEL 143 MMOL/L (136-145); TOTAL PROTEIN 6.3 G/DL (5.7-8.2); TRIGLYCERIDES LEVEL 179 MG/DL (<150)
== END ==
LOC: M SFHCCLAY 08:07
PROVIDERS: ATTEND Nurse Practitioner Family
DX: E03.9 Hypothyroidism, unspecified (principal); E66.9 Obesity, unspecified; Z76.89 Persons encountering health services in other specified circumstances; Z68.34 Body mass index [BMI] 34.0-34.9, adult; C32.0 Malignant neoplasm of glottis; Z13.1 Encounter for screening for diabetes mellitus

== ENCOUNTER → 2024-02-03 | Outpatient (REF) | payer BC ==
[2024-02-03 17:10] LABS: ALBUMIN 4.2 G/DL (3.2-5.2); ALKALINE PHOSPHATASE 86 U/L (46-116); ALT/SGPT 27 U/L (7.0-40); AST/SGOT 19 U/L (<34); BILIRUBIN,TOTAL 0.5 MG/DL (0.3-1.2); BLOOD UREA NITROGEN 18 MG/DL (9-23); CALCIUM LEVEL 9.5 MG/DL (8.3-10.6); CARBON DIOXIDE LEVEL 28 MMOL/L (20-31); CHLORIDE LEVEL 106 MMOL/L (98-107); CHOLESTEROL LEVEL 232 MG/DL (<200); CHOLESTEROL RISK RATIO 6.33 (<5); GLOMERULAR FILTRATION RATE > 60.0 (>49); GLUCOSE, FASTING 80 MG/DL (74-106); HDL CHOLESTEROL 36.6 MG/DL (>40); LDL CHOLESTEROL 160.2 MG/DL (<100); NON-HDL-C 195.4 MG/DL; POTASSIUM SERUM 4.7 MMOL/L (3.5-5.1); SODIUM LEVEL 141 MMOL/L (136-145); TOTAL PROTEIN 6.5 G/DL (5.7-8.2); TRIGLYCERIDES LEVEL 176 MG/DL (<150)
== END ==
LOC: M SFHCCLAY 08:41
PROVIDERS: ATTEND Nurse Practitioner Family
DX: N52.9 Male erectile dysfunction, unspecified (principal); E78.2 Mixed hyperlipidemia
CPT/HCPCS: 80053; 80061; 84402; 84403; G0103

== ENCOUNTER → 2024-04-30 | Outpatient (REF) | payer BC ==
[2024-04-30 14:03] LABS: ALBUMIN 3.9 G/DL (3.2-5.2); ALKALINE PHOSPHATASE 88 U/L (46-116); ALT/SGPT 26 U/L (7.0-40); AST/SGOT 13 U/L (<34); BILIRUBIN,TOTAL 0.7 MG/DL (0.3-1.2); BLOOD UREA NITROGEN 15 MG/DL (9-23); CALCIUM LEVEL 9.2 MG/DL (8.3-10.6); CARBON DIOXIDE LEVEL 30 MMOL/L (20-31); CHLORIDE LEVEL 107 MMOL/L (98-107); CHOLESTEROL LEVEL 160 MG/DL (<200); CHOLESTEROL RISK RATIO 4.09 (<5); CREATININE FOR GFR 1.05 MG/DL (0.70-1.30); GLOMERULAR FILTRATION RATE > 60.0 (>49); GLUCOSE, FASTING 91 MG/DL (74-106); HDL CHOLESTEROL 39.1 MG/DL (>40); LDL CHOLESTEROL 91.5 MG/DL (<100); NON-HDL-C 120.9 MG/DL; POTASSIUM SERUM 4.3 MMOL/L (3.5-5.1); SODIUM LEVEL 141 MMOL/L (136-145); TOTAL PROTEIN 6.3 G/DL (5.7-8.2); TRIGLYCERIDES LEVEL 147 MG/DL (<150)
== END ==
LOC: M SFHCCLAY 08:47
PROVIDERS: ATTEND Nurse Practitioner Family
DX: E78.2 Mixed hyperlipidemia (principal)

== ENCOUNTER → 2024-06-24 | Outpatient (REF) | payer BC ==
[2024-06-24 12:36] LABS: ALKALINE PHOSPHATASE 93 U/L (40-129); ALT/SGPT 30 U/L (7.0-40); AST/SGOT 11 U/L (<34); BILIRUBIN,TOTAL 0.7 MG/DL (0.3-1.2); BLOOD UREA NITROGEN 17 MG/DL (9-23); CALCIUM LEVEL 9.7 MG/DL (8.3-10.6); CARBON DIOXIDE LEVEL 32 MMOL/L (20-31); CHLORIDE LEVEL 104 MMOL/L (98-107); CREATININE FOR GFR 1.05 MG/DL (0.70-1.30); GLOMERULAR FILTRATION RATE > 60.0 (>49); GLUCOSE, FASTING 97 MG/DL (74-106); POTASSIUM SERUM 4.4 MMOL/L (3.5-5.1); SODIUM LEVEL 142 MMOL/L (136-145); TOTAL PROTEIN 6.8 G/DL (5.7-8.2)
== END ==
LOC: M SFHCCLAY 08:27
PROVIDERS: ATTEND Nurse Practitioner Family
DX: I10 Essential (primary) hypertension (principal)

== ENCOUNTER → 2025-01-26 | Outpatient (REF) | payer BC ==
[2025-01-26 13:08] LABS: PSA SCREENING 2.57 NG/ML (< 4.00)
[2025-01-26 13:11] LABS: ALT/SGPT 30.0 U/L (7.0-40); AST/SGOT 23.0 U/L (<34); CALCIUM LEVEL 9.2 MG/DL (8.3-10.6); CARBON DIOXIDE LEVEL 31.0 MMOL/L (20-31); CHLORIDE LEVEL 102.0 MMOL/L (98-107); CHOLESTEROL LEVEL 154.0 MG/DL (<200); CHOLESTEROL RISK RATIO 4.42 (<5); CREATININE FOR GFR 1.09 MG/DL (0.70-1.30); GLOMERULAR FILTRATION RATE 77.2 (>49); LDL CHOLESTEROL 88.8 MG/DL (<100); MAGNESIUM LEVEL 2.0 MG/DL (1.8-2.4); NON-HDL-C 119.2 MG/DL; POTASSIUM SERUM 4.3 MMOL/L (3.5-5.1); SODIUM LEVEL 142.0 MMOL/L (136-145); TRIGLYCERIDES LEVEL 152.0 MG/DL (<150)
[2025-01-26 13:12] LABS: BASO # 0.0 10^3/uL (0.0-0.2); BASO % 0.5 % (0.0-1.0); EOS # 0.1 10^3/uL (0.0-0.5); EOS % 1.4 % (0.0-3.0); LYMPH # 0.9 10^3/uL (1.5-5.0); LYMPH % 10.5 % (24.0-44.0); MONO # 0.9 10^3/uL (0.0-0.8); MONO % 10.2 % (2.0-8.0); NEUTROPHILS # 6.4 10^3/uL (1.5-8.5); NEUTROPHILS % 76.4 % (36.0-66.0); PLATELET COUNT, AUTOMATED 178 10^3/uL (150-450)
[2025-01-26 13:14] LABS: FREE T4 1.24 NG/DL (0.89-1.76)
[2025-01-26 13:21] LABS: ESTIMATED AVERAGE GLUCOSE 105.0 MG/DL (60-110)
== END ==
LOC: M SFHCCLAY 08:22
PROVIDERS: ATTEND Nurse Practitioner Family
DX: C32.0 Malignant neoplasm of glottis (principal); Z68.34 Body mass index [BMI] 34.0-34.9, adult; E66.9 Obesity, unspecified; Z76.89 Persons encountering health services in other specified circumstances; Z13.1 Encounter for screening for diabetes mellitus; I10 Essential (primary) hypertension; E03.9 Hypothyroidism, unspecified; E78.2 Mixed hyperlipidemia; N52.9 Male erectile dysfunction, unspecified; Z79.899 Other long term (current) drug therapy
CPT/HCPCS: 80053; 80061; 83036; 83735; 84439; 84443; 85025; G0103